=== PATIENT | female | born 1975 | race Caucasian/White ===

== ENCOUNTER 2021-03-10 10:09 | Outpatient (CLI) | payer OTHER, SELFPAY ==
--- NOTE | ~2021-03-10 | MM_ITS ---
EXAMINATION: MM screening sindhu BI w mikel HISTORY: Screening TECHNIQUE: Craniocaudal and mediolateral oblique 3-D tomosynthesis images were obtained and synthetic 2-D images were generated. CAD analysis was submitted and interpreted. COMPARISON: Comparison to multiple prior studies sequentially, with oldest reviewed study dated 08/16. BREAST PARENCHYMAL COMPOSITION: There are scattered areas of fibroglandular density. FINDINGS: There is no evidence of suspicious mass, calcification, or architectural distortion to sugg est malignancy in either breast. There has been no suspicious interval change. IMPRESSION: 1. No mammographic evidence of malignancy. 2. Recommend routine screening mammography in one year. BI-RADS Category 1: Negative Reviewed, dictated and finalized at location A.
== END 2021-03-10 10:10 | disposition home or self-care (01) ==
LOC: ANHIMG 10:13
PROVIDERS: PCP Family Medicine; Visit Provider Obstetrics & Gynecology
DX: Z12.31 Encounter for screening mammogram for malignant neoplasm of breast (principal)
CPT/HCPCS: 77063; 77067

== ENCOUNTER 2022-10-05 12:16 | Outpatient (CLI) | payer OTHER, SELFPAY ==
--- NOTE | ~2022-10-05 | MM_ITS ---
EXAMINATION: MM screening sindhu BI w mikel HISTORY: Screening mammogram TECHNIQUE: Craniocaudal and mediolateral oblique 3-D tomosynthesis images were obtained and synthetic 2-D images were generated. CAD analysis was submitted and interpreted. COMPARISON: 03/2021 bilateral screening mammogram the examination 10/24/2018 diagnostic right mammogram 10/15/2018 bilateral screening mammogram examination BREAST PARENCHYMAL COMPOSITION: There are scattered areas of fibroglandular density. FINDINGS: There is no evidence of suspicious mass, calcification, or architectural distortion to sugg est malignancy in either breast. There has been no suspicious interval change. IMPRESSION: 1. No mammographic evidence of malignancy. 2. Recommend routine screening mammography in one year. BI-RADS Category 1: Negative Reviewed, dictated and finalized at location A. 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
== END 2022-10-05 12:17 | disposition home or self-care (01) ==
LOC: ANHIMG 12:19
PROVIDERS: PCP Family Medicine; Visit Provider Obstetrics & Gynecology
DX: Z12.31 Encounter for screening mammogram for malignant neoplasm of breast (principal)
CPT/HCPCS: 77063; 77067

== ENCOUNTER 2023-12-27 11:31 | Outpatient (CLI) | payer OTHER, SELFPAY ==
--- NOTE | ~2023-12-27 | MM_ITS ---
EXAMINATION: MM screening sindhu BI w mikel HISTORY: Screening TECHNIQUE: Craniocaudal and mediolateral oblique 3-D tomosynthesis images were obtained and synthetic 2-D images were generated. CAD analysis was submitted and interpreted. COMPARISON: Comparison to multiple prior studies sequentially, with oldest reviewed study dated 09/2014. BREAST PARENCHYMAL COMPOSITION: There are scattered areas of fibroglandular density. FINDINGS: There is no evidence of suspicious mass, calcification, or architectural distortion to sugg est malignancy in either breast. There has been no suspicious interval change. IMPRESSION: 1. No mammographic evidence of malignancy. 2. Recommend routine screening mammography in one year. BI-RADS Category 1: Negative Reviewed, dictated and finalized at location A.
== END 2023-12-27 11:32 ==
PROVIDERS: PCP Obstetrics & Gynecology; Visit Provider Family Medicine
DX: Z12.31 Encounter for screening mammogram for malignant neoplasm of breast (principal)
CPT/HCPCS: 77063; 77067

== ENCOUNTER 2024-05-22 15:45 | Outpatient (CLI) | payer OTHER, SELFPAY ==
[2024-05-22 16:06] LABS: Basophils Percent Auto 0.3 % (0.2-1.2); Eosinophils Absolute Auto 0.1 K/mm3 (0-0.3); Eosinophils Percent Auto 0.7 % (0-4.4); Hemoglobin 13.5 g/dL (12.0-15.0); Immature Granulocyte Absolute 0.03 K/mm3 (0.00-0.031); Immature Granulocyte Percent A 0.4 % (0-0.5); Lymphocytes Absolute Auto 0.69 K/mm3 (0.9-3.2); Lymphocytes Percent Auto 9.6 % (18.3-44.2); Mean Corpuscular HGB Conc 33.8 g/dl (32-36); Mean Corpuscular Hemoglobin 30.4 pg (26-34); Mean Corpuscular Volume 90.1 fl (80-100); Mean Platelet Volume 10.9 fl (7.4-10.4); Monocytes Absolute Auto 0.5 K/mm3 (0.1-0.6); Neutrophils Absolute Auto 5.9 K/mm3 (1.3-6.7); Platelet Count Result 214 k/mm3 (150-375); Red Blood Count 4.44 M/mm3 (4.2-5.4); Red Cell Distribution Width 12.1 % (11.5-14.5); White Blood Count 7.2 K/mm3 (4.5-10.0)
[2024-05-22 17:14] LABS: Alanine Aminotransferase 21 U/L (6-35); Albumin Level 4.5 g/dL (3.5-5.1); Alkaline Phosphatase 67 U/L (38-126); Anion Gap 9 mmol/L (4-12); Aspartate Amino Transferase 31 U/L (14-36); Bilirubin,Total 0.2 mg/dL (0.2-1.3); Blood Urea Nitrogen 14 mg/dL (7-17); Calcium 9.3 mg/dL (8.4-10.2); Carbon Dioxide 29 mmol/L (22-30); Chloride 98 mmol/L (98-107); Estimated Glomerular Filt Rate > 60; Glucose 91 mg/dL (65-110); Potassium 3.9 mmol/L (3.4-5.0); Sodium 136 mmol/L (137-145)
[2024-05-22 21:22] LABS: Iron 68 ug/dL (37-170)
[2024-05-22 21:41] LABS: Percent Iron Saturation 19 % (20-50)
[2024-05-23 08:04] LABS: EBV Nuclear Ab Antibody >600.00 U/mL; EBV Virus Capsid Ag IgM Ab <36.00 U/mL
[2024-05-27 02:48] LABS: Methylmalonic Acid 97 nmol/L (55-335)
[2024-05-27 07:33] LABS: Anti Nuclear Antibody Pattern Nuclear, Speckled
== END 2024-05-22 15:46 | disposition home or self-care (01) ==
LOC: ANHLAB 15:46
PROVIDERS: PCP Obstetrics & Gynecology; Visit Provider Internal Medicine Hematology & Oncology
DX: D72.820 Lymphocytosis (symptomatic) (principal); R71.8 Other abnormality of red blood cells
CPT/HCPCS: 36415; 80053; 82607; 82728; 82746; 83540; 83550; 83921; 84238; 85025; 86038; 86039; 86664; 86665; 88184

== ENCOUNTER 2024-06-11 07:47 | Outpatient (CLI) | payer OTHER, SELFPAY ==
--- NOTE | ~2024-06-11 | US_ITS ---
Abdominal Sonogram: Real-time sonographic imaging of the abdomen was performed. Clinical History: Lymphocytopenia Findings: The liver appears normal with no evidence of mass lesion or bile duct dilatation. Main por maría vein demonstrates normal direction of flow. The spleen is normal in size without evidence of foca l lesion. The gallbladder is well distended, and appears normal with no evidence of gallstone or wal l thickening. The common bile duct measures 2 mm. The visualized pancreas, aorta, and IVC are unrema rkable. The right kidney measures 9.1 cm in length and the left kidney measures 9.5 cm. There is no hydronephrosis or renal calculus. Impression: Unremarkable abdominal ultrasound. Reviewed, dictated and finalized at location . 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
== END 2024-06-11 07:48 | disposition home or self-care (01) ==
PROVIDERS: Visit Provider Internal Medicine Hematology & Oncology
DX: D72.810 Lymphocytopenia (principal)
CPT/HCPCS: 76700

== ENCOUNTER 2024-11-01 08:56 | Outpatient (CLI) | payer OTHER, SELFPAY ==
--- NOTE | 2024-11-01 09:07 | ECG_ITS ---
Test Date: 2024-11-01 09:15:37 Measurements Intervals [place] Rate: 67 P: 52 W[place]: 166 QRS: 61 QRSD: 94 T: 36 QT: 400 QTc: 423 Interpretive Statements SINUS RHYTHM No previous ECG available for comparison Electronically Signed On 11-01-2024 11:00:08 CDT by Marly Bills M.D.
--- OUTSIDE RECORDS SUMMARY | 2024-11-01 09:23 | XMS_ITS | Clinical Summary ---
Author Organization [facility] Address [facility] [place] [address] Care Team Providers Care Ict Security Specialist Name Role Phone Maria De Jesus Voss MD Primary Care Provider [phone] Allergies Active Allergy Reactions Criticality Noted Date Comments Sulfa Antibiotics Rash Low 11/23/2023 Medications lisinopril (PRINIVIL) 20 MG tablet Take 1 tablet (20 mg total) by mouth daily. 4 Active naltrexone-buPROPio n ER (CONTRAVE) 12 hr tablet Take 2 tablets by mouth 2 (two) times daily. Active sertraline (ZOLOFT) 50 MG tablet Take 1 tablet (50 mg total) by mouth daily. 4 Active fluticasone propionate (FLONASE) 50 MCG/ACT nasal spray 2 sprays by Nasal route daily. 4 Active VEOZAH 45 MG Tab Take 1 tablet by mouth daily. 4 Active HYDROcodone-acetami nophen (NORCO) 5-325 MG tabletIndications:A cute Pain < 3 Day Supply Take 1 tablet by mouth every 6 (six) hours as needed. Indications: Acute Pain < 3 Day Supply 12 tablet 5 Active ondansetron (ZOFRAN-ODT) 4 MG disintegrating tablet Take 1 tablet (4 mg total) by mouth every 8 (eight) hours as needed. 20 tablet 5 Active Encounters Date Type Department Care Team Description 10/08/2024 11:31 AM COLLECTION ANALYST - 10/08/2024 4:33 PM COLLECTION ANALYST Emergency [facility] [place] [address] [place] [address] Aylin Art NP Abdominal Pain Discharge Disposition: Home or Self Care (Routine Discharge) 10/08/2024 Travel from Last 3 Months Social History Tobacco Use Types Packs/Day Years Used Date Smoking Tobacco: Never Smokeless Tobacco: Never Tobacco Cessation:Counseling Given: Not Answered Comments No Sex and Gender Information Value Date Recorded Sex Assigned at Female 10/08/2024 10:58 AM COLLECTION ANALYST Legal Sex Female 6:59 PM CDT Gender Identity Not on file Sexual Orientation Not on file Last Filed Vital Signs Vital Sign Reading Time Taken Comments Blood Pressure 141/86 10/08/2024 3:41 PM COLLECTION ANALYST Pulse 66 10/08/2024 3:41 PM COLLECTION ANALYST Temperature 36.6 C (97.9 F) 10/08/2024 10:55 AM COLLECTION ANALYST Respiratory Rate 18 10/08/2024 3:41 PM COLLECTION ANALYST Oxygen Saturation 100% 10/08/2024 3:41 PM COLLECTION ANALYST Inhaled Oxygen Concentration - - Weight 76.6 kg (168 lb 14 oz) 10/08/2024 10:55 A M COLLECTION ANALYST Height 165.1 cm (5' 5 ) 10/08/2024 10:55 AM COLLECTION ANALYST Body Mass Index 28.1 10/08/2024 10:55 AM COLLECTION ANALYST Plan of Treatment Health Maintenance Due Date Last Done Comments Colorectal Cancer Screening Colonoscopy (10 Years) 1973 Annual Physical 1976 Hepatitis C 10/19/1991 Hepatitis B Vaccines (1 of 3 - 19+ 3-dose series) 1992 Mammogram Screening 2013 Zoster Vaccines (1 of 2) 10/19/2023 COVID-19 Vaccine ( season) 2024 09/12/2021, 11/23/2020, 10/30/2020 DTaP, Tdap and Td Vaccines (2 - Td or Tdap) 08/03/2028 08/03/2018 Influenza Adult Completed 05/14/2024, 04/08, 05/04/2020, Additional history exists Meningococcal B Vaccine Aged Out No l onger eligible based on patient's age to complete this topic Meningococcal Vaccine Aged Out No popeye ora eligible based on patient's age to complete this topic Pneumococcal Vaccine: Pediatrics (0 to 5 Years) and At-Risk Patients (6 to 64 Years) Aged Out No longer eligible based on patient's age to complete this topic RSV Immunizations Under 20 Months Aged Out No longer eligible based on patient's age to complete this topic Procedures Procedure Name Priority Date/Time Associated Diagnosis Comments US PELVIC NON OB COMP TV STAT 10/08/2024 2:[address] ABD+PEL W CON STAT 10/08/2024 12:1 4 PM COLLECTION ANALYST LIPASE STAT 10/08/2024 11:41 AM COLLECTION ANALYST COMPREHENSIVE METABOLIC PANEL STAT 10/08/2024 11:41 AM COLLECTION ANALYST CBC W/DIFF AUTOMATED STAT 10/08/2024 11:41 AM COLLECTION ANALYST URINE BACTERIA CULTURE STAT 11:37 AM COLLECTION ANALYST HC URINALYSIS AUTO W/O MICRO STAT 10/08/2024 11:37 AM COLLECTION ANALYST from Last 3 Months Results * US PELVIC NON OB COMP TV (10/08/2024 2:30 PM COLLECTION ANALYST) Anatomical Region Laterality Modality Pelvis Ultrasound 10/08/2024 2:39 PM COLLECTION ANALYST Impressions 10/08/2024 2:55 PM COLLECTION ANALYST =====IMPRESSION:===== 1. No findings of ovarian torsion. 2. Status post hysterectomy. 3. Left ovarian 2.8 cm complex possibly hemorrhagic cyst. 4. Left ovarian small 1.7 cm hypoechoic possible involuting cyst or follicle. Ordered By: AYLIN ART Interpreted By: Florentino Adams MD, 10/08/2024 2:39 PM Narrative 10/08/2024 2:55 PM COLLECTION ANALYST [address] [address] EXAMINATION: Ultrasound transvaginal pelvis non-OB EXAM DATE/TIME: 10/08/2024 1:53 PM REASON FOR EXAM: 48-year-old female. Left lower quadrant abdominal pain. Ovarian cyst on CT imaging. Evaluation for torsion COMPARISON: CT abdomen pelvis 10/08/2024 TECHNIQUE: Transvaginal ultrasound evaluation of the pelvic contents was performed for analysis of grayscale and color Doppler imaging. FINDINGS: Uterus is surgically absent post hysterectomy. The right ovary measures 2.3 x 1.5 x 2.0 cm. The left ovary measures 4.9 x 2.1 x 4.5 cm. There is a left adnexal cyst measuring 2.8 x 2.1 x 2.8 cm with the layering internal echo suggestive of a hemorrhagic cyst. There are 2 additional smaller cysts or follicles. Additional small hypoechoic area measuring 1.7 cm abutting abutting or in the left ovary. Etiology uncertain. This could represent an involuting cyst. Flow is present in both ovaries. There is no torsion. No significant pelvic free fluid. Procedure Note Florentino Adams MD - 10/08/[address] [address] EXAMINATION: Ultrasound transvaginal pelvis non-OB EXAM DATE/TIME: 10/08/2024 1:53 PM REASON FOR EXAM: 48-year-old female. Left lower quadrant abdominal pain.Ovarian cyst on CT imaging. Evaluation for torsion COMPARISON: CT abdomen pelvis 10/08/2024 TECHNIQUE: Transvaginal ultrasound evaluation of the pelvic contents wasperformed for analysis of grayscale and color Doppler imaging. FINDINGS: Uterus is surgically absent post hysterectomy. The right ovary measures 2.3 x 1.5 x 2.0 cm. The left ovary measures 4.9 x 2.1 x 4.5 cm. There is a left adnexal cyst measuring 2.8 x 2.1 x 2.8 cm with thelayering internal echo suggestive of a hemorrhagic cyst. There are 2additional smaller cysts or follicles. Additional small hypoechoic areameasuring 1.7 cm abutting abutting or in the left ovary. Etiologyuncertain. This could represent an involuting cyst. Flow is present in both ovaries. There is no torsion. No significant pelvic free fluid. =====IMPRESSION:===== 1. No findings of ovarian torsion. 2. Status post hysterectomy. 3. Left ovarian 2.8 cm complex possibly hemorrhagic cyst. 4. Left ovarian small 1.7 cm hypoechoic possible involuting cyst orfollicle. Ordered By: AYLIN ART Interpreted By: Florentino Adams MD, 10/08/2024 2:39 PM us Aylin Art BRAZER CONTROLLED ATMOSPHERIC FURNACE ULTRASOUND Final Result * CT ABD+PEL W CON (10/08/2024 12:14 PM COLLECTION ANALYST) Anatomical Region Laterality Modality Abdomen Computed Tomogra phy 10/08/2024 12:5 5 PM COLLECTION ANALYST Impressions 10/08/2024 1:15 PM COLLECTION ANALYST =====IMPRESSION:===== 1. Left ovarian cyst measuring 3.6 cm is indeterminate. If this is acutely symptomatic, consider pelvic ultrasound. Otherwise, follow-up pelvic ultrasound would be recommended in 6 weeks to ensure resolution. 2. Small free pelvic fluid could be from ruptured ovarian cyst, endometriosis or occult inflammatory process. 3. Small hiatal hernia. 4. Prior sleeve gastrectomy and hysterectomy. Ordered By: AYLIN ART Interpreted By: Josh Oconnor MD, 10/08/2024 12:55 PM Narrative 10/08/2024 1:15 PM COLLECTION ANALYST [address] [address] EXAMINATION: CT Abdomen and Pelvis with contrast EXAM DATE/TIME: 10/08/2024 12:06 PM REASON FOR EXAM: left lower quadrant abdominal pain COMPARISON: None. TECHNIQUE: Computed tomography of the abdomen and pelvis was performed after administration of intravenous contrast, 100 mL Isovue 300 . Automated exposure control was utilized for dose reduction. FINDINGS: Abdomen: Small nonenhancing lesion in the left hepatic lobe medial segment is compatible with a cyst. Liver is otherwise unremarkable. The gallbladder, spleen, pancreas, kidneys, adrenal glands and IVC are unremarkable. Minimal aortic atherosclerosis. Large and small bowel are unremarkable. Normal appendix visualized. Small dense object in the distal ileum may represent a biopsy clip or other object within the bowel lumen. Prior sleeve gastrectomy. Small hiatal hernia. Small splenule noted in the left upper quadrant. No suspicious adenopathy. Pelvis: Prior hysterectomy. Bladder and rectum are unremarkable. Left ovarian cyst, largest measuring 3.6 cm in diameter. Right ovary is unremarkable. Small free pelvic fluid. No adenopathy. Other findings: Visualized lung bases are clear. Diffuse degenerative changes are noted. Cortical irregularity of the left iliac crest anterolaterally may represent old injury or postsurgical changes. No acute fracture or destructive bone lesion. Procedure Note Rice, Josh Davila MD - 10/08/[address] [address] EXAMINATION: CT Abdomen and Pelvis with contrast EXAM DATE/TIME: 10/08/2024 12:06 PM REASON FOR EXAM: left lower quadrant abdominal pain COMPARISON: None. TECHNIQUE: Computed tomography of the abdomen and pelvis was performedafter administration of intravenous contrast, 100 mL Isovue 300 .Automated exposure control was utilized for dose reduction. FINDINGS: Abdomen: Small nonenhancing lesion in the left hepatic lobe medial segmentis compatible with a cyst. Liver is otherwise unremarkable. Thegallbladder, spleen, pancreas, kidneys, adrenal glands and IVC areunremarkable. Minimal aortic atherosclerosis. Large and small bowel areunremarkable. Normal appendix visualized. Small dense object in the distalileum may represent a biopsy clip or other object within the bowel lumen.Prior sleeve gastrectomy. Small hiatal hernia. Small splenule noted in theleft upper quadrant. No suspicious adenopathy. Pelvis: Prior hysterectomy. Bladder and rectum are unremarkable. Leftovarian cyst, largest measuring 3.6 cm in diameter. Right ovary isunremarkable. Small free pelvic fluid. No adenopathy. Other findings: Visualized lung bases are clear. Diffuse degenerativechanges are noted. Cortical irregularity of the left iliac crestanterolaterally may represent old injury or postsurgical changes. No acutefracture or destructive bone lesion. =====IMPRESSION:===== 1. Left ovarian cyst measuring 3.6 cm is indeterminate. If this is acutelysymptomatic, consider pelvic ultrasound. Otherwise, follow-up pelvicultrasound would be recommended in 6 weeks to ensure resolution. 2. Small free pelvic fluid could be from ruptured ovarian cyst,endometriosis or occult inflammatory process. 3. Small hiatal hernia. 4. Prior sleeve gastrectomy and hysterectomy. Ordered By: AYLIN ART Interpreted By: Josh Oconnor MD, 10/08/2024 12:55 PM Aylin Art BRAZER CONTROLLED ATMOSPHERIC FURNACE CT Final Result * (ABNORMAL) COMPREHENSIVE METABOLIC PANEL (10/08/2024 11:41 AM COLLECTION ANALYST) GLUCOSE 78 70 - 99 MG/DL 10/08/2024 12:13 PM [facility] BUN 10 7 - 18 MG/DL 10/08/2024 12:13 PM [facility] CREATININE S/P/B 0.81 0.55 - 1.02 MG/DL 10/08/2024 12:13 PM [facility] SODIUM S/P/B 137 136 - 145 MMOL/L 10/08/2024 12:13 PM [facility] POTASSIUM S/P/B 3.5 3.5 - 5.1 MMOL/L 10/08/2024 12:13 PM [facility] CHLORIDE S/P/B 103 97 - 115 MMOL/L 10/08/2024 12:13 PM [facility] CO2 28.0 21 - 32 MMOL/L 10/08/2024 12:13 PM [facility] CALCIUM S/P/B 9.1 8.5 - 10.1 MG/DL 10/08/2024 12:13 PM [facility] BILIRUBIN TOTAL S/P/B 0.5 0.2 - 1.2 MG/DL 10/08/2024 12:13 PM [facility] Comment: THIS ASSAY IS NOT RECOMMENDED FOR PATIENTS UNDERGOING TREATMENT WITH ELTROMBOPAG DUE TO THE POTENTIAL FOR FALSELY ELEVATED RESULTS. TOTAL PROTEIN S/P/B 7.5 6.4 - 8.2 G/DL 10/08/2024 12:13 PM [facility] ALBUMIN S/P/B 4.0 3.4 - 5.0 G/DL 10/08/2024 12:13 PM [facility] AST 18 15 - 37 U/L 10/08/2024 12:13 PM [facility] ALT 24 14 - 55 U/L 10/08/2024 12:13 PM [facility] ALKALINE PHOSPHATASE S/P/B 57 50 - 136 U/L 10/08/2024 12:13 PM [facility] ANION GAP 6.0 2 - 10 MMOL/L 10/08/2024 12:13 PM [facility] BUN CREATININE RATIO 12.4 6 - 26 10/08/2024 12:13 PM [facility] A/G RATIO 1.1 1.0 - 2.0 RATIO 10/08/2024 12:13 PM [facility] GFR ESTIMATE 88(L) >90 ML/MIN/1.7 3 M2 10/08/2024 12:13 PM [facility] Comment: NOTE: eGFR is not calculated for patients <18 years of age or gender unknown. This is an estimated GFR calculation using the new CKD EPI creatinine equation without race and so does not require a correction factor for race. This estimated GFR should not be used for calculating drug doses. 10/08/2024 11:4 1 AM COLLECTION ANALYST Aylin Art NP LABORATORY Final Result [facility] [address] [place] [address], [place] [phone] * (ABNORMAL) CBC W/DIFF AUTOMATED (10/08/2024 11:41 AM COLLECTION ANALYST) Pathologist [facility] WBC 8.64 4.5 - 11.0 x10'3/uL 10/08/2024 11:51 AM COLLECTION ANALYST [facility] RBC 4.93 4.20 - 5.40 x10'6/uL 10/08/2024 11:51 AM [facility] HGB 14.8 12.0 - 16.0 G/DL 10/08/2024 11:51 AM [facility] HCT 43.1 38.0 - 48.0 % 10/08/2024 11:51 AM [facility] MCV 87.4 81.0 - 99.0 FL 10/08/2024 11:51 AM [facility] MCH 30.0 27.0 - 31.0 PG 10/08/2024 11:51 AM [facility] MCHC 34.3 32.0 - 36.0 G/DL 10/08/2024 11:51 AM COLLECTION ANALYST [facility] RDW 12.1 11.5 - 14.5 % 10/08/2024 11:51 AM [facility] PLT 203 130 - 400 x10'3/uL 10/08/2024 11:51 AM [facility] MPV 11.9 9.3 - 12.2 FL 10/08/2024 11:51 AM [facility] DIFFERENTIAL TYPE AUTOMATED DIFFERENTIAL 10/08/2024 11:51 AM COLLECTION ANALYST [facility] NEUTROPHILS % 82.9 % 10/08/2024 11:51 AM COLLECTION ANALYST [facility] LYMPHOCYTES % 9.8 % 10/08/2024 11:51 AM [facility] MONOCYTES % 6.6 % 10/08/2024 11:51 AM [facility] EOSINOPHILS 0.2 % 10/08/2024 11:51 AM COLLECTION ANALYST [facility] BASOPHILS 0.2 % 10/08/2024 11:51 AM COLLECTION ANALYST [facility] IMMATURE GRANS % 0.3 % 10/09/19 11:51 AM [facility] ABS. NEUTROPHILS 7.15 1.80 - 7.70 x10'3/uL 10/08/2024 11:51 AM [facility] ABS. LYMPHOCYTES 0.85(L) 1.00 - 4.80 x10'3/uL 10/08/2024 11:51 AM COLLECTION ANALYST [facility] ABS. MONOCYTES 0.57 0.24 - 0.86 x10'3/uL 10/08/2024 11:51 AM [facility] ABS. EOSINOPHILS 0.02(L) 0.04 - 0.36 x10'3/uL 10/08/2024 11:51 AM COLLECTION ANALYST [facility] ABS. BASOPHILS 0.02 0.01 - 0.08 x10'3/uL 10/08/2024 11:51 AM COLLECTION ANALYST [facility] ABS. IMMATURE GRANULOCYTES 0.03 0.00 - 0.49 x10'3/uL 10/08/2024 11:51 AM [facility] 10/08/2024 11:4 1 AM COLLECTION ANALYST us Aylin Art NP LABORATORY Final Result [facility] [address] [place] [address], [place] [phone] * LIPASE (10/08/2024 11:41 AM COLLECTION ANALYST) LIPASE 42 13 - 75 UNITS/L 10/08/2024 12:13 PM COLLECTION ANALYST [facility] 10/08/2024 11:4 1 AM COLLECTION ANALYST Aylin Art NP LABORATORY Final Result [facility] [address] [place] [address], [place] [phone] * URINALYSIS (10/08/2024 11:37 AM COLLECTION ANALYST) SPECIMEN TYPE URINE CLEAN CATCH 10/08/2024 11:33 AM COLLECTION ANALYST [facility] COLOR (U) LIGHT YELLOW 10/08/2024 11:57 AM [facility] TRANSPARENCY CLEAR 10/08/2024 11:57 AM [facility] SPECIFIC GRAVITY (U) 1.003 1.001 - 1.030 10/08/2024 11:57 AM [facility] U PH 6.5 5.0 - 9.0 10/08/2024 11:57 AM [facility] LEUKOCYTES (U) NEGATIVE NEGATIVE 10/08/2024 11:57 AM [facility] NITRITES NEGATIVE NEGATIVE 10/08/2024 11:57 AM [facility] PROTEIN RANDOM (U) NEGATIVE <30 MG/DL 10/08/2024 11:57 AM [facility] GLUCOSE (U) NORMAL NORMAL MG/DL 10/08/2024 11:57 AM COLLECTION ANALYST [facility] KETONES MG/DL (U) NEGATIVE NEGATIVE MG/DL 10/08/2024 11:57 AM COLLECTION ANALYST [facility] UROBILINOGEN NORMAL NORMAL MG/DL 10/08/2024 11:57 AM [facility] BILIRUBIN (U) NEGATIVE NEGATIVE MG/DL 10/08/2024 11:57 AM COLLECTION ANALYST [facility] BLOOD (U) NEGATIVE NEGATIVE 10/08/2024 11:57 AM COLLECTION ANALYST [facility] URINE SPECIMEN OBTAINED BY CLEAN CATCH PROCEDURE / Unknown 10/08/2024 11:37 AM COLLECTION ANALYST Aylin Art NP URINE ORDERABLES Final Result Performing Organization Address [facility] Co de Phone Number [facility] [address] [place] [address], [place] [phone] * CULTURE URINE (10/08/2024 11:37 AM COLLECTION ANALYST) SPEC DESCRIPTION URINE CLEAN CATCH 10/08/2024 11:33 AM COLLECTION ANALYST [facility] SPECIAL REQUESTS NO SPECIAL REQUEST 10/08/2024 11:33 AM [facility] CULTURE RESULT NO GROWTH 2 DAYS 10/10/2024 7:10 AM COLLECTION ANALYST [facility] URINE SPECIMEN OBTAINED BY CLEAN CATCH PROCEDURE / Unknown 10/08/2024 11:37 AM COLLECTION ANALYST 10/08/2024 11:46 AM COLLECTION ANALYST Aylin Art NP MICROBIOLOGY - GENERAL ORDERAB LES Final Result Performing Organization Address City/[facility]/ZIP Co de Phone Number [facility] [address] [place] [address], [place] [phone] from Last 3 Months Insurance [facility] Care Teams Ict Security Specialist Relationship Specialty Start Date End Date Maria De Jesus Voss MD [address] [place] [address] [place] [address] PCP - General INTERNAL MEDICINE 10/08/24
--- OUTSIDE RECORDS SUMMARY | 2024-11-01 09:23 | XMS_ITS | Clinical Summary ---
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 Gender Identity Not on file Sexual Orientation Not on file Plan of Treatment Health Maintenance Due Date Last Done Comments Hepatitis C Virus (HCV) Screening 1973 TdaP Immunization 1973 Hepatitis B Immunization (1 of 3 - 19+ 3-dose series) 1992 Colonoscopy 2018 Colorectal Cancer Screening 2018 Cologuard 10/19/2023 Immunochemical Fecal Occult Blood 10/19/2023 Pneumococcal Immunization (5 0+ years) (1 of 1 - PCV) 10/19/2023 Zoster Immunization (1 of 2) 10/19/2023 Influenza Immunization (#1) 2024 SARS-COV-2 Immunization ( - season) 2024 Respiratory Syncytial Virus (RSV) Immunization (Adult) (1 - 1-dose 75+ series) 2048 Meningococcal Immunization (ACWY) Aged Out No longer eligible based on patient's age to complete this topic Rotavirus Immunization Aged Out No lo nger eligible based on patient's age to complete this topic
--- OUTSIDE RECORDS SUMMARY | 2024-11-01 09:23 | XMS_ITS | Referral Summary ---
Author Organization [facility] [address] Address [address] [place] [id number] Care Team Providers Care Nutritional Services Cook Name Role Phone Angelique Stuart MD Primary Care Provider Allergies Active Allergy Reactions Criticality Noted Date Comments Sulfa (Sulfonamide Antibiotics) Rash Medium 06/07 Sulfasalazine Rash Medium 06/24/2013 Medications fluticasone propionate (FLONASE) 50 mcg/actuation nasal spray Administer 2 sprays into affected nostril(s) daily 2 Active lisinopriL (PRINIVIL,ZESTR [place]) 20 mg tablet 1 tablet (20 mg total) 2 Active naltrexone-bupr opion (Contrave) 8-90 mg tablet extended release 2 tablets Active sertraline (ZOLOFT) 50 mg tablet 1 tablet (50 mg total) 2 Active Active Problems No known active problems Social History Tobacco Use Types Packs/Day Years Used Date Smoking Tobacco: Never Tobacco Cessation:Counseling Given: Not Answered Personal Safety Answer Date Recorded Getting School Help Needed Not on file 08/12 Comments Unknown Sex and Gender Information Value Date Recorded Sex Assigned at Not on file Legal Sex Female 6:44 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 Gender Identity Not on file Sexual Orientation Not on file Last Filed Vital Signs Vital Sign Reading Time Taken Comments Blood Pressure 133/85 06/23/2022 10:20 AM COBOL PROGRAMMER Pulse 91 06/23/2022 10:20 AM COBOL PROGRAMMER Temperature - - Respiratory Rate - - Oxygen Saturation - - Inhaled Oxygen Concentration - - Weight 79.8 kg (176 lb) 06/23/2022 10:20 AM COBOL PROGRAMMER Height 165.1 cm (5' 5 ) 06/23/2022 10:20 AM COBOL PROGRAMMER Body Mass Index 29.29 06/23/2022 10:20 AM COBOL PROGRAMMER Plan of Treatment Not on file Insurance [employer] Care Teams Nutritional Services Cook Relationship Specialty Start Date End Date Angelique Stuart MD PCP - General Family Medicine 06/14/22
--- OUTSIDE RECORDS SUMMARY | 2024-11-01 09:23 | XMS_ITS | Clinical Summary ---
Author Organization [facility] [address] [address] Care Team Providers Care Powerhouse Oiler Name Role Phone Angelique Stuart MD Primary [...] Active Active Problems No known active problems Surgical History Surgery Date Site/Laterality Comments BARIATRIC SURGERY Gastric Sleeve HYSTERECTOMY MANDIBLE FRACTURE SURGERY SHOULDER SURGERY SLAP Repair SHOULDER ARTHROSCOPY SECTION ABLATION Medical History Medical History Date Comments Hypertension Family History Medical History Relation Name Comments Breast cancer Other Heart disease Other Hypertension Other Ovarian cancer Other Relation Name Status Comments Other Social History Tobacco Use Types Packs/Day Years Used Date Smoking Tobacco: Never Tobacco Cessation:Counseling Given: Not Answered Personal Safety Answer Date Recorded Getting School Help Needed Not on file 08/12 Comments Unknown Sex and Gender Information Value Date Recorded Sex Assigned at Not on file 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 Gender Identity Not on file Sexual Orientation Not on file Obstetrics History Last Filed Vital Signs Vital Sign Reading Time Taken Comments Blood Pressure 133/85 06/23/2022 10:20 AM CITY ATTORNEY Pulse 91 06/23/2022 10:20 AM CITY ATTORNEY Temperature - - Respiratory Rate - - Oxygen Saturation - - Inhaled Oxygen Concentration - - Weight 79.8 kg (176 lb) 06/23/2022 10:20 AM CITY ATTORNEY Height 165.1 cm (5' 5 ) 06/23/2022 10:20 AM CITY ATTORNEY Body Mass Index 29.29 06/23/2022 10:20 AM CITY ATTORNEY Plan of Treatment Health Maintenance Due Date Last Done Comments Breast Cancer Screening-Mammogram 1973 Colon Cancer Screening-Colonoscopy 1973 Depression Screening 1973 Hepatitis C Screening 1973 Hepatitis B Screening 10/19/1991 Regular Well Visit/Exam 18-64 10/19/1991 Zoster Vaccine (1 of 2) 10/19/2023 Covid-19 Vaccine ( season) 2024 09/12/2021, 11/23/2020, 10/30/2020 Influenza Vaccine (#1) 2024 , 05/04/2020, 05/08/2019, Additional history exists DTaP/Tdap/Td Vaccine (2 - Td or Tdap) 08/03/2028 08/03/2018 Pneumococcal vaccine <65 Aged Out No longer eligible based on patient's age to complete this topic Insurance MALIHA ALLEGIANCE Care Teams Powerhouse Oiler Relationship Specialty Start Date End Date Angelique Stuart MD PCP - General Family Medicine 06/14/22
--- OUTSIDE RECORDS SUMMARY | 2024-11-01 09:23 | XMS_ITS | Clinical Summary ---
Author Organization [facility] Address [address] [place] [address] Care Team Providers Care X Ray Equipment Tester Name Role Phone Unavailable Primary Care Provider Unavailabl e Source Comments [facility],non-owned Affiliates and Associated Physician Practices is amultiple site organization consisting of ambulatory clinics and hospital sitesin [place], [place], [place] and [place]. This disclosure is being madepursuant to the Care Everywhere program and may not contain all information available regarding this patient. Last updated 18.[facility] Allergies Active Allergy Reactions Criticality Noted Date Comments Sulfa Drugs Rash Low 06/24/2013 Medications * Be aware that medications may not be up to date on this document. Alwaysverify current medications with the patient. Medication Sig Dispensed Refills Start Date End Date Status lisinopril (PRINIVIL; ZESTRIL) 10 MG tablet Take 20 mg by mouth once daily after breakfast Active sertraline (ZOLOFT) 50 MG tablet Take 50 mg by mouth once daily Active Active Problems Problem Noted Date Diagnosed Date Heartburn 06/24/2013 Depression 06/24/2013 Social History Tobacco Use Types Packs/Day Years Used Date Smoking Tobacco: Never Smokeless Tobacco: Never Alcohol Use Standard Drinks/Week Comments No 0 (1 standard drink = 0.6 oz pur e alcohol) Sex and Gender Information Value Date Recorded Sex Assigned at Not on file Gender Identity Not on file Sexual Orientation Not on file Last Filed Vital Signs Vital Sign Reading Time Taken Comments Blood Pressure 139/96 03/07/2017 12:30 PM CDT Pulse 65 03/07/2017 12:30 PM CDT Temperature 36.3 C (97.3 F) 03/10/2014 2:05 PM CDT Respiratory Rate 16 02/27/2014 11:35 AM CDT Oxygen Saturation 100% 10/17/2014 12:08 PM CDT Inhaled Oxygen Concentration - - Weight 79.6 kg (175 lb 8 oz) 03/07/2017 12:30 PM CDT Height 165.1 cm (5' 5 ) 03/07/2017 12:30 PM CDT Body Mass Index 29.2 03/07/2017 12:30 PM CDT Plan of Treatment Health Maintenance Due Date Last Done Comments COLOGUARD (AGES 45-75) - COLON CA SCREENING 1973 COLON MONITORING 1973 COLONOSCOPY - COLON CA SCREENING 1973 CT COLONOGRAPHY - COLON CA SCREENING 1973 Colorectal Cancer Screening 1973 FIT - COLON CA SCREENING 1973 FLEX SIG - COLON CA SCREENING 1973 LIPID TESTING 1973 MAMMOGRAM 1973 PAP SMEAR 1973 HIV SCREENING 1988 HEPATITIS C SCREENING 10/14/1991 DTAP/TDAP/TD VACCINES (1 - Tdap) 1992 HEPATITIS B VACCINE (1 of 3 - 19+ 3-dose series) 1992 SCREENING FOR DIABETES 10/17/2017 5, 02/21/2014, 02/21/2014, Additional history exists PNEUMOCOCCAL VACCINE 50+ (1 of 1 - PCV) 10/19/2023 ZOSTER VACCINE (1 of 2) 10/19/2023 COVID-19 VACCINE (1 - 2023- season) 2024 INFLUENZA VACCINE (#1) 2024 DEPRESSION SCREENING 08/07/2024 HIB VACCINE Aged Out No longer eligi ble based on patient's age to complete this topic HPV VACCINE Aged Out No longer eligi ble based on patient's age to complete this topic MENINGOCOCCAL (Group B) VACCINE SHARED DECISION-MAKING Aged Out No longer eligible based on patient's age to complete this topic MENINGOCOCCAL GROUPS A/C/Y/W VACCINE Aged Out No longer eligible based on patient's age to complete this topic Procedures Procedure Name Priority Date/Time Associated Diagnosis Comments COMPREHENSIVE METABOLIC PANEL Routine 10/17/2014 12:46 PM CDT Bariatric surgery status Obesity Unspecified vitamin D deficiency Unspecified nutritional deficiency Unspecified vitamin deficiency Mineral deficiency, not elsewhere classified from Last 3 Months or Most Recently Relevant to Health Maintenance Results * COMPREHENSIVE METABOLIC PANEL (10/17/2014 12:46 PM CDT) Glucose 85 65 - 99 mg/dL [facility] ACCOUNT BILL BUN 10 6 - 24 mg/dL [facility] ACCOUNT BILL Creatinine 0.71 0.57 - 1.00 mg/dL [facility] ACCOUNT BILL eGFR by MDRD 107 >59 mL/min/1.7 3 [facility] ACCOUNT BILL eGFR by MDRD 123 >59 mL/min/1.7 3 [facility] ACCOUNT BILL BUN/Creatinine Ratio 14 9 - 23 [facility] ACCOUNT BILL Sodium 140 134 - 144 mmol/L [facility] ACCOUNT BILL Potassium 4.3 3.5 - 5.2 mmol/L [facility] ACCOUNT BILL Chloride 101 97 - 108 mmol/L [facility] ACCOUNT BILL CO2 24 18 - 29 mmol/L [facility] ACCOUNT BILL Calcium 9.1 8.7 - 10.2 mg/dL [facility] ACCOUNT BILL Protein Total 6.7 6.0 - 8.5 g/dL [facility] ACCOUNT BILL Albumin 4.2 3.5 - 5.5 g/dL [facility] ACCOUNT BILL Globulin Total 2.5 1.5 - 4.5 g/dL [facility] ACCOUNT BILL Albumin/Globulin Ratio 1.7 1.1 - 2.5 [facility] ACCOUNT BILL Bilirubin Total 0.3 0.0 - 1.2 mg/dL [facility] ACCOUNT BILL Alkaline Phosphatase 53 39 - 117 IU/L [facility] ACCOUNT BILL AST 15 0 - 40 IU/L [facility] ACCOUNT BILL ALT 17 0 - 32 IU/L [facility] ACCOUNT BILL Blood specimen (specimen) BLOOD SPECIMEN / Unknown 10/17/2014 12:46 PM CDT 10/17/2014 2:56 PM CDT Narrative Resulting Agency Comment [facility] [address] [id number] Amanda Boles MACHINE ROOM ENGINEER-INSURANCE OPERATIONS REP LAB - CHEMIS TRY ORDERABLES [facility] ACCOUNT BILL from Last 3 Months or Most Recently Relevant to Health Maintenance Advance Directives * Full Code (Latest Code Status on File) Date Activated Date Inactivated Comments 02/19/2014 11:47 AM 02/21/2014 2:39 PM
--- OUTSIDE RECORDS SUMMARY | 2024-11-01 09:24 | XMS_ITS | Encounter Summary ---
Author Organization [employer] [facility] Address [address] [place] [address] Care Team Providers Care Lift Slab Operator Name Role Phone Maria De Jesus Voss MD Primary Care Provider [phone] Reason for Visit * Reason Onset Date Comments Upcoming Surgery 10/31/2024 Encounter Details Date Type Department Care Team (Late st Contact Info) Description 10/31/2024 Telephone [facility] [place] [address] [address] Maria De Jesus Voss MD [address] [place] [address] Upcoming Surgery Social History Tobacco Use Types Packs/Day Years Used Date Smoking Tobacco: Never Smokeless Tobacco: Never Alcohol Use Standard Drinks/Week Comments Yes 3 (1 standard drink = 0.6 oz pur e alcohol) Comments No Sex and Gender Information Value Date Recorded Sex Assigned at Female 04/21/2024 8:32 PM CDT Legal Sex Female 11:23 AM CDT Gender Identity Female 04/21/2024 8:32 PM CDT Sexual Orientation Straight 04/21/2024 8: 32 PM CDT documented as of this encounter Miscellaneous Notes * Telephone Encounter - Naty Reece - 10/31/2024 11:36 AM CDT Patient came in stating she is having L ovary removed at [place] by Dr Calix- 3 cysts. November 06, 2024. Pt was seen in ED within last month in pain. (Records are in chart) documented in this encounter Plan of Treatment Upcoming Encounters Date Type Department Care Team (Late st Contact Info) Description 11/25/2024 1:00 PM CDT Procedure visit [facility] [place] [address] [employer] [place] [phone] 12/20/2024 10:00 AM CDT Office Visit [facility] - [place] [address] [place] [phone] Johnathan Romero MD [address] [place] [phone] documented as of this encounter Visit Diagnoses Not on filedocumented in this encounter Care Teams Lift Slab Operator Relationship Specialty Start Date End Date Maria De Jesus Voss MD [address] [place] [id number] PCP - General Internal Medicine 02/06/24 documented as of this encounter
--- OUTSIDE RECORDS SUMMARY | 2024-11-01 09:24 | XMS_ITS | Encounter Summary ---
Author Organization [facility] Address [address] [place] [address] Care Team Providers Care High School Mathematics Teacher Name Role Phone Maria De Jesus Voss MD Primary Care Provider [phone] Encounter Details Date Type Department Care Team (Late Contact Info) Description 09/23/2024 Results Follow-Up [facility] [address] [place] [address] Maria De Jesus Voss MD [address] [place] [address] VITAMIN D 25 HYDROXY, TSH, LIPID PANEL, Additional followed-up results: 2 Social History Tobacco Use Types Packs/Day Years [...] PM CDT documented as of this encounter Plan of Treatment Upcoming Encounters Date Type Department Care Team (Late st Contact Info) Description 11/25/2024 1:00 PM CDT Procedure visit [facility] [employer] [facility] [address] [place] [address] 12/20/2024 10:00 AM CDT Office Visit [facility] - [place] [facility] [place] [address] [address] Johnathan Romero MD [address] [facility] [address] [place] [address] Scheduled Orders Name Type Priority Associated Diagnoses Orde r Schedule VITAMIN D 25 HYDROXY Lab Routine Low vitamin D level Expected: 11/21/2024, Expires: 09/23/2025 documented as of this encounter Visit Diagnoses Diagnosis Low vitamin D level- Primary documented in this encounter Care Teams High School Mathematics Teacher Relationship Specialty Start Date End Date Maria De Jesus Voss MD [address] [place] [address] [place] [address] PCP - General Internal Medicine 02/06/24 documented as of this encounter
--- OUTSIDE RECORDS SUMMARY | 2024-11-01 09:24 | XMS_ITS | Clinical Summary ---
Author Organization [facility] [employer] [place] Address [address] [place] [place] [address] Care Team Providers Care Assembler Dc Field Yoke Name Role Phone Maria De Jesus Voss MD Primary Care Provider [phone] Allergies Active Allergy Reactions Criticality Noted Date Comments Sulfa (Sulfonamide Antibiotics) Rash Low 11/05 Sulfasalazine Rash Low 06/24/2013 Medications fluticasone propionate (FLONASE) 50 mcg/spray Corona, Suspension nasal inhaler Administer 2 Sprays in each nostril daily. 16 Gram 2 4 Active multivitamin with minerals (HAIR,SKIN AND NAILS ORAL) Take by mouth. Act agapito ergocalciferol (Vitamin D2) 50,000 unit capsuleIndicatio ns:Low vitamin D level Take 1 Capsule (50,000 Units) by mouth every 7 days for 8 doses. 8 Capsule 5 025 Active tirzepatide, weight loss, (Zepbound) 5 mg/0.5 mL Pen InjectorIndicati ons:Obesity, Class I, BMI 30-34.9 Inject 5 mg by subcutaneous injection every 7 days. 6 mL 1 5 Active lisinopriL (PRINIVIL) 20 mg tabletIndication s:Benign hypertension Take 1 Tablet (20 mg) by mouth daily. 90 Tablet 5 Active sertraline (ZOLOFT) 50 mg tabletIndication s:Situational depression Take 1 Tablet (50 mg) by mouth daily. 90 Tablet 5 Active Active Problems Problem Noted Date Diagnosed Date Lymphopenia 04/04/2024 Blood donor, plasma 04/04/2024 Benign hypertension 08/08/2023 Macrocytic anemia 03/28/2019 Personal history of ovarian cyst 03/26/2019 Situational depression 02/09/2018 Encounters Date Type Department Care Team Description 10/31/2024 Telephone [facility] at [facility] [address] [place] [phone] Maria De Jesus Voss MD Upcoming Surgery 10/23/2024 External Device Data STL ABSTRACTION Provider, Abstract 10/12/2024 External Device Data STL ABSTRACTION Provider, Abstract 10/11/2024 External Device Data STL ABSTRACTION Provider, Abstract 10/08/2024 External Device Data STL ABSTRACTION Provider, Abstract 09/27/2024 1:00 PM CIGARETTE CATCHER Office Visit [facility] [address] [place] [phone] Maria De Jesus Voss MD Obesity, Class I, BMI 30-34.9 (Primary Dx); Low vitamin D level; Benign hypertension; Situational depression 09/24/2024 External Device Data STL ABSTRACTION Provider, Abstract 09/23/2024 Results Follow-Up [place] [address] [place] [phone] Maria De Jesus Voss MD VITAMIN D 25 HYDROXY, TSH, LIPID PANEL, Additional followed-up results: 2 09/20/2024 8:00 AM CIGARETTE CATCHER Office [place] [facility] [place][note 2] [address] [place] [phone] Low vitamin D level; Screening for condition; Benign hypertension 09/20/2024 Refill [facility] [address] [place] [phone] Maria De Jesus Voss MD Obesity, Class I, BMI 30-34.9 08/28/2024 1:00 PM CIGARETTE CATCHER Office Visit [facility] [place]note 2] [address] [place] [phone] Maria De Jesus Voss MD Benign hypertension (Primary Dx); Situational depression; Obesity, Class I, BMI 30-34.9; Low vitamin D level; Screening for condition 08/28/2024 External Device Data STL ABSTRACTION Provider, Abstract 08/27/2024 External Device Data STL ABSTRACTION Provider, Abstract 08/20/2024 External Device Data STL ABSTRACTION Provider, Abstract from Last 3 Months Immunizations Immunization Administration Dates Next Due (ADACEL/BOOSTRIX)(10 YR UP) TDAP VACCINE, 0.5ML, IM 08/03/2018 INFLUENZA VACCINE QUADRIVALENT 3 YR UP PF IM 04/2017 INFLUENZA VACCINE QUADRIVALENT 6 MOS UP IM 05/08,05/03/2018 INFLUENZA VACCINE QUADRIVALENT 6 MOS UP PF IM ,05/04/2020 INFLUENZA VACCINE TRIVALENT SPLIT VIRUS, (6 MOS UP), 0.5ML (PF), IM 05/14/2024 Family History Medical History Relation Name Comments No Known Problems Brother No Known Problems Daughter Heart Disease Father Gabriele Archibald CAD . no elicia nts. med managed. High Cholesterol Father Gabriele Archibald Hypertension Father Gabriele Archibald Alcohol abuse Maternal Grandfather Ovarian Cancer Maternal Grandmother Antonieta Hung had B RACA gene Sudden Mother MVA Unknown Paternal Grandfather Heart Attack Paternal Grandmother No Known Problems Son Breast Cancer Neg Hx Colon Cancer Neg Hx Lung Cancer Neg Hx Relation Name Status Comments Brother Alive Daughter Alive Father Gabriele Archibald Alive Maternal Grandfather Maternal Grandmother Antonieta Hung Mother (Age 2010) Paternal Grandfather Paternal Grandmother Son Alive Social History Tobacco Use Types Packs/Day Years Used Date Smoking Tobacco: Never Smokeless Tobacco: Never Tobacco Cessation:Counseling Given: Not Answered Alcohol Use Standard Drinks/Week Comments Yes 3 (1 standard drink = 0.6 oz pur e alcohol) Comments No Sex and Gender Information Value Date Recorded Sex Assigned at Female 04/21/2024 8:32 PM CDT Legal Sex Female 11:23 AM CDT Gender Identity Female 04/21/2024 8:32 PM CDT Sexual Orientation Straight 04/21/2024 8: 32 PM CDT Last Filed Vital Signs Vital Sign Reading Time Taken Comments Blood Pressure 124/84 09/27/2024 1:05 PM CIGARETTE CATCHER Pulse 64 09/27/2024 1:05 PM CIGARETTE CATCHER Temperature 37.1 C (98.7 F) 08/28/2024 12:58 PM CIGARETTE CATCHER Respiratory Rate 18 09/27/2024 1:05 PM CIGARETTE CATCHER Oxygen Saturation 96% 09/27/2024 1:05 PM CIGARETTE CATCHER Inhaled Oxygen Concentration - - Weight 78.4 kg (172 lb 12.8 oz) 09/27/2024 1:05 PM CIGARETTE CATCHER Height 165.1 cm (5' 5 ) 09/27/2024 1:05 PM CIGARETTE CATCHER Body Mass Index 28.76 09/27/2024 1:05 PM CIGARETTE CATCHER Plan of Treatment Upcoming Encounters Date Type Department Care Team (Late st Contact Info) Description 11/25/2024 1:00 PM CDT Procedure visit [facility] at [employer] [place] [address] [place] [phone] 12/20/2024 10:00 AM CDT Office Visit [facility] Oncology and Hematology - [place] [address] [facility] [address] [place] [address] Johnathan Romero MD [address] [facility] [address] [place] [address] Health Maintenance Due Date Last Done Comments HEPATITIS B VACCINES (1 of 3 - 19+ 3-dose series) 1992 COLORECTAL SCREENING 2018 Flex Sig/CT Colonography Q 5 years 2018 FIT/FOBT Q 1 year 04/09/2020 04/09/2019 ZOSTER VACCINE (1 of 2) 10/19/2023 BREAST CANCER SCREENING 12/26/2024 12/27/19 24, 03/10/2021, 03/10/2021 (Previously completed), Additional history exists Pre-Diabetes and Diabetes Screening 02/17/2025 02/17/2022 Colorectal Cancer Screening 03/15/2026 FIT-DNA Q 3 years 03/15/2026 03/15/2023 DTAP/TDAP/TD VACCINES (2 - T d or Tdap) 08/03/2028 08/03/2018 INFLUENZA VACCINE Completed 05/14/2024, , 05/04/2020, Additional history exists Procedures Procedure Name Priority Date/Time Associated Diagnosis Comments COMPREHENSIVE METABOLIC PANEL Routine 09/20/2024 7:58 AM CIGARETTE CATCHER Screening for condition CBC WITH DIFFERENTIAL Routine 09/20/2024 7:58 AM CIGARETTE CATCHER Benign hypertension Screening for condition LIPID PANEL Routine 09/20/2024 7:58 AM CIGARETTE CATCHER Screening for condition TSH Routine 09/20/2024 7:58 AM CIGARETTE CATCHER Screening for condition VITAMIN D 25 HYDROXY Routine 09/20/2024 7:58 AM CIGARETTE CATCHER Low vitamin D level MAMMO 3D ROSIE DIAGNOSTIC BILAT W OR WO CAD Routine 12/27/2023 7:21 AM CDT COLON CANCER SCREEN, STOOL DNA Routine 03/15/2023 6:05 PM CDT Screen for colon cancer HEMOGLOBIN A1C Routine 02/17/2022 2:38 PM CDT Audible heartbeat in ear, right POC OCCULT BLOOD UP TO 3 CARDS Routine 04/09/2019 8:34 AM CDT Screening for condition from Last 3 Months or Most Recently Relevant to Health Maintenance Results * (ABNORMAL) CBC WITH DIFFERENTIAL (09/20/2024 7:58 AM CIGARETTE CATCHER) WBC 4.0 3.8 - 10.8 Thousand/u L [facility] RBC 5.02 3.80 - 5.10 Million/uL [facility] HEMOGLOBIN 15.2 11.7 - 15.5 g/dL [facility] HEMATOCRIT 45.9(H) 35.0 - 45.0 % [facility] MCV 91.4 80.0 - 100.0 fL [facility] MCH 30.3 27.0 - 33.0 pg [facility] MCHC 33.1 32.0 - 36.0 g/dL [facility] Comment: For adults, a slight decrease in the calculated MCHC value (in the range of 30 to 32 g/dL) is most likely not clinically significant; however, it should be interpreted with caution in correlation with other red cell parameters and the patient's clinical condition. RDW 12.5 11.0 - 15.0 % [facility] PLATELETS 197 140 - 400 Thousand/u L [facility] MPV 13.1(H) 7.5 - 12.5 fL [facility] NEUTROPHIL ABSOLUTE 3,016 1,500 - 7,800 cells/uL [facility] LYMPHOCYTE ABSOLUTE 612(L) 850 - 3,900 cells/uL [facility] MONOCYTE ABSOLUTE 312 200 - 950 cells/uL [facility] EOSINOPHIL ABSOLUTE 40 15 - 500 cells/uL [facility] BASOPHILS ABSOLUTE 20 0 - 200 cells/uL [facility] NEUTROPHIL 75.4 % [facility] LYMPHOCYTES 15.3 % [facility] MONOCYTE 7.8 % [facility] EOSINOPHILS 1.0 % [facility] BASOPHILS 0.5 % [facility] Comment: Test Performed at: [facility] [address] [place] [address] Neal Cordero MD Blood 09/20/2024 7:58 AM CIGARETTE CATCHER 09/21/2024 8:04 AM CIGARETTE CATCHER us Maria De Jesus Voss MD HEMATOLOGY ORDERABLES Final Re sult [facility] [phone] [facility] [address] [place] [phone] * (ABNORMAL) VITAMIN D 25 HYDROXY (09/20/2024 7:58 AM CIGARETTE CATCHER) VITAMIN D, 25 OH, TOTAL 14(L) 30 - 100 ng/mL [facility] Comment: Vitamin D Status 25-OH Vitamin D: Deficiency: <20 ng/mL Insufficiency: 20 - 29 ng/mL Optimal: > or = 30 ng/mL For 25-OH Vitamin D testing on patients on D2-supplementation and patients for whom quantitation of D2 and D3 fractions is required, the [facility]) 25-OH VIT D, (D2,D3), LC/MS/MS is recommended: order code 87123 (patients >2yrs). See Note 1 Note 1 For additional information, please refer to http://education.Fluidinova - [employer]os/faq/IIT407 (This link is being provided for informational/ educational purposes only.) Test Performed at: [facility] [address] Neal Cordero MD Blood 09/20/2024 7:58 AM CIGARETTE CATCHER 09/21/2024 8:04 AM CIGARETTE CATCHER Maria De Jesus Voss MD CHEMISTRY ORDERABLES Final Res ult Performing Organization Address [facility] Co de Phone Number [facility] [phone] [address] * TSH (09/20/2024 7:58 AM CIGARETTE CATCHER) Pathologist [facility] TSH 0.82 mIU/L [facility] Comment: Reference Range > or = 20 Years 0.40-4.50 Ranges First trimester 0.26-2.66 Second trimester 0.55-2.73 Third trimester 0.43-2.91 Test Performed at: [facility] [place] [address] Neal Cordero MD Blood 09/20/2024 7:58 AM CIGARETTE CATCHER 09/21/2024 8:04 AM CIGARETTE CATCHER us Maria De Jesus Voss MD CHEMISTRY ORDERABLES Final Res ult Performing Organization Address [facility]/ZIP Co de Phone Number [facility] [phone] [facility] [address] * (ABNORMAL) LIPID PANEL (09/20/2024 7:58 AM CIGARETTE CATCHER) Pathologist [facility] CHOLESTEROL 184 <200 mg/dL [facility] HDL 63 > OR = 50 mg/dL [facility] TRIGLYCERIDE 61 <150 mg/dL [facility] LDL CALCULATED 106(H) mg/dL (calc) [facility] Comment: Reference range: <100 Desirable range <100 mg/dL for primary prevention; <70 mg/dL for patients with CHD or diabetic patients with > or = 2 CHD risk factors. LDL-C is now calculated using the Santiago calculation, which is a validated novel method providing better accuracy than the Friedewald equation in the estimation of LDL-C. Leo SS et al. EVERETT. 2013;310(19): 4051-2029 (http://education.Fluidinova - [employer] Fl[employer]os/faq/IIM926) CHOL/HDL RATIO 2.9 <5.0 (calc) [facility] NON-HDL CHOLESTEROL 121 <130 mg/dL (calc) [facility] Comment: For patients with diabetes plus 1 major ASCVD risk factor, treating to a non-HDL-C goal of <100 mg/dL (LDL-C of <70 mg/dL) is considered a therapeutic option. Test Performed at: [facility] [address] [place] [address] Neal Cordero MD Blood 09/20/2024 7:58 AM CIGARETTE CATCHER 09/21/2024 8:04 AM CIGARETTE CATCHER us Maria De Jesus Voss MD CHEMISTRY ORDERABLES Final Res ult [facility] [phone] [facility] [address] [place] [address] * COMPREHENSIVE METABOLIC PANEL (09/20/2024 7:58 AM CIGARETTE CATCHER) GLUCOSE 75 65 - 99 mg/dL [facility] Comment: Fasting reference interval BUN 10 7 - 25 mg/dL [facility] CREATININE 0.76 0.50 - 1.03 mg/dL [facility] GFR 95 > OR = 60 mL/min/1. 73m2 [facility] BUN/CREAT RATIO SEE NOTE: 6 - 22 (calc) [facility] Comment: Not Reported: BUN and Creatinine are within reference range. SODIUM 139 135 - 146 mmol/L [facility] POTASSIUM 4.1 3.5 - 5.3 mmol/L [facility] CHLORIDE 103 98 - 110 mmol/L [facility] CO2 28 20 - 32 mmol/L [facility] CALCIUM 9.1 8.6 - 10.4 mg/dL [facility] TOTAL PROTEIN 7.0 6.1 - 8.1 g/dL [facility] ALBUMIN 4.4 3.6 - 5.1 g/dL [facility] GLOBULIN 2.6 1.9 - 3.7 g/dL (calc) [facility] ALBUMIN/GLOBULIN RATIO 1.7 1.0 - 2.5 (calc) [facility] BILIRUBIN TOTAL 0.5 0.2 - 1.2 mg/dL [facility] ALKALINE PHOSPHATASE 51 37 - 153 U/L [facility] AST 22 10 - 35 U/L [facility] ALT 18 6 - 29 U/L [facility] Comment: Test Performed at: [facility] [address] [place] [address] Neal Cordero MD Blood 09/20/2024 7:58 AM CIGARETTE CATCHER 09/21/2024 8:04 AM CIGARETTE CATCHER us Maria De Jesus Voss MD CHEMISTRY ORDERABLES Final Res ult [facility] [phone] [facility] [address] [place] [address] * MAMMO 3D ROSIE DIAGNOSTIC BILAT W OR WO CAD (12/27/2023 7:21 AM CDT) Anatomical Region Laterality Modality Breast Bilateral Mammography us Frida FIGUEROA MAMMO ORDERABLES Edited Resu lt - Final * COLON CANCER SCREEN, STOOL DNA (03/15/2023 6:05 PM CDT) COLOGUARD RESULT Negative Negative [facility] Comment: NEGATIVE TEST RESULT. A negative Cologuard result indicates a low likelihood that a colorectal cancer (CRC) or advanced adenoma (adenomatous polyps with more advanced pre-malignant features) is present. The chance that a person with a negative Cologuard test has a colorectal cancer is less than 1 in 1500 (negative predictive value >99.9%) or has an advanced adenoma is less than 5.3% (negative predictive value 94.7%). These data are based on a prospective cross-sectional study of 10,000 individuals at average risk for colorectal cancer who were screened with both Cologuard and colonoscopy. (Oniel Ferrer et al, N Engl J Med 2014;370(14):0913-9791) The normal value (reference range) for this assay is negative. COLOGUARD RE-SCREENING RECOMMENDATION: Periodic colorectal cancer screening is an important part of preventive healthcare for asymptomatic individuals at average risk for colorectal cancer. Following a negative Cologuard result, the [place] Cancer Society and U.S. Multi-Society Task Force screening guidelines recommend a Cologuard re-screening interval of 3 years. References: [place] Cancer Society Guideline for Colorectal Cancer Screening: https://www.cancer.org/cancer/kilgx-uddkxn-xrvkek/cyaufzoyb-iukukurha-zmjirqn/ac s-rec ommendations.html.; Rommel MAURICIO, [place], Ildefonso EcheverriaK, Colorectal Cancer Screening: Recommendations for Physicians and Patients from the U.S. Multi-Society Task Force on Colorectal Cancer Screening , Am J Gastroenterology 2017; 112:5548-6313. TEST DESCRIPTION: Composite algorithmic analysis of stool DNA-biomarkers with hemoglobin immunoassay. Quantitative values of individual biomarkers are not reportable and are not associated with individual biomarker result reference ranges. Cologuard is intended for colorectal cancer screening of adults of either sex, 45 years or older, who are at average-risk for colorectal cancer (CRC). Cologuard has been approved for use by the U.S. FDA. The performance of Cologuard was established in a cross sectional study of average-risk adults aged 50-84. Cologuard performance in patients ages 45 to 49 years was estimated by sub-group analysis of near-age groups. Colonoscopies performed for a positive result may find as the most clinically significant lesion: colorectal cancer [4.0%], advanced adenoma (including sessile serrated polyps greater than or equal to 1cm diameter) [20%] or non- advanced adenoma [31%]; or no colorectal neoplasia [45%]. These estimates are derived from a prospective cross-sectional screening study of 10,000 individuals at average risk for colorectal cancer who were screened with both Cologuard and colonoscopy. (Oniel Santos al, N Engl J Med 2014;370(14):7105-2980.) Cologuard may produce a false negative or false positive result (no colorectal cancer or precancerous polyp present at colonoscopy follow up). A negative Cologuard test result does not guarantee the absence of CRC or advanced adenoma (pre-cancer). The current Cologuard screening interval is every 3 years. ([place] Cancer Society and U.S. Multi-Society Task Force). Cologuard performance data in a 10,000 patient pivotal study using colonoscopy as the reference method can be accessed at the following location: www.MENA360/results. Additional description of the Cologuard test process, warnings and precautions can be found at www.payworksrd.BestContractors.com. Stool STOOL SPECIMEN / Unknown 03/15/2023 6:05 PM CDT 03/18/2023 2:32 AM CDT Frida FIGUEROA BODY FLUIDS AND STOOLS Final Result [facility] CLIA # [id number] [address], [address] [place] [address] * HEMOGLOBIN A1C (02/17/2022 2:38 PM CDT) HEMOGLOBIN A1C 5.0 <5.7 % of total Hgb [facility] Comment: For the purpose of screening for the presence of diabetes: <5.7% Consistent with the absence of diabetes 5.7-6.4% Consistent with increased risk for diabetes (prediabetes) > or =6.5% Consistent with diabetes This assay result is consistent with a decreased risk of diabetes. Currently, no consensus exists regarding use of hemoglobin A1c for diagnosis of diabetes in children. According to [place] Diabetes Association (ADA) guidelines, hemoglobin A1c <7.0% represents optimal control in non- diabetic patients. Different metrics may apply to specific patient populations. Standards of Medical Care in Diabetes(ADA). ESTIMATED AVERAGE GLUCOSE (MG/DL) 97 mg/dL [facility] ESTIMATED AVERAGE GLUCOSE (MMOL/L) 5.4 mmol/L [facility] Comment: Test Performed at: [facility] [address] [place] [address] Gary Hood D.O., MPH Blood 02/17/2022 2:38 PM CDT 02/18/2022 4:29 AM CDT us Leah Heller INDUSTRIAL SPRAYPAINTER CHEMISTRY ORDERABLES F inal Result Performing Organization Address [facility]/ZIP Co de Phone Number [facility] [phone] [facility] [address] [place] [address] * POC OCCULT BLOOD UP TO 3 CARDS (04/09/2019 8:34 AM CDT) OCCULT BLOOD 1 CARD POC Negative Negative [facility] [place] OCCULT BLOOD 2 CARD POC Negative Negative [facility] [place] OCCULT BLOOD 3 CARD POC Negative Negative [facility] [place] INTERNAL KIT QC Pass Pass [facility] CARD [address] NUMBER POC [id number] [address] [facility] [place] CARD EXP[place]ATION DATE POC 10/2019 [facility] [place]BER POC [id number] [facility] [place] EX[place] DATE POC 01/2022 [facility] [place] Stool STOOL SPECIMEN / Unknown 04/09/2019 8:34 AM CDT us Sonia Gibbs FIRST AID TEACHER POINT OF CARE TESTING F inal Result Performing Organization Address City/[facility]/ZIP Co de Phone Number [facility] CLIA# [id number] [address] [place] [address] from Last 3 Months or Most Recently Relevant to Health Maintenance Insurance [employer] ALLEGIANCE OPEN ACCESS Advance Directives For more information, please contact: [phone] * Full Code (Latest Code Status on File) Date Activated Date Inactivated Comments 07/10/2019 11:43 AM 07/10/2019 4:58 PM * Full Code Date Activated Date Inactivated Comments 07/10/2019 10:56 AM 07/10/2019 11:43 AM Care Teams Assembler Dc Field Yoke Relationship Specialty Start Date End Date Maria De Jesus Voss MD [address] [place] [phone] PCP - General Internal Medicine 02/06/24
== END 2024-11-01 08:57 | disposition home or self-care (01) ==
LOC: ANHSURGERY 09:02
PROVIDERS: PCP Internal Medicine; Visit Provider Obstetrics & Gynecology
DX: Z01.818 Encounter for other preprocedural examination (principal); N83.209 Unspecified ovarian cyst, unspecified side; I10 Essential (primary) hypertension
CPT/HCPCS: 36415; 86850; 86900; 86901; 93005

== ENCOUNTER 2024-11-06 00:46 | Day surgery (SDC) | payer OTHER, SELFPAY ==
[2024-10-29 14:31] VITALS: BMI 26.6
--- NOTE | 2024-10-29 14:32 | PC.NURSE ---
Report to the Outpatient Waiting Room, entrance under the green pavilion located off [facility], at time _1200_ on date _[id number]_. Planned Procedure Time: _2pm_.? Time changes happen often and if your time is changed the preop area will call you the afternoon before. - You and your visitor will be asked to self-screen and do not enter if you have any COVID symptoms. Please call surgeon if you need to reschedule. - A mask is optional within the hospital at this time. Patients may have clear liquids (water, carbonated beverages, clear teas, apple juice) until 3 hours prior to surgery with a maximum of 20 ounces. - No food from midnight until time of surgery and no smoking, or chewing tobacco (or any form of nicotine). No chewing gum, candy or mints. Take only the following medications with a SIP of water on the morning of surgery: __None DO NOT STOP ANY OF YOUR OTHER PRESCRIPTION MEDICATIONS PRIOR TO SURGERY EXCEPT THE FOLLOWING Hold all vitamins and supplements for 3 days per anesthesiologist. Patient has also stopped Zepbound with last dose 10-25-2024 Medications to discontinue per physician Date to take last dose Please no make-up, nail serbian, hairspray, perfume, deodorant, or body powder the day of surgery.? No jewelry (including any body piercings) or valuables the day of surgery, leave them at home.? Please take a shower or bath the night before, or the morning of, surgery with an antibacterial soap.? Wear comfortable, loose fitting clothing.? - Jewelry must be removed prior to entering the operating room.? Rings and piercings that are not removed may be cut off. - The hospital will not accept responsibility for valuables.? - Please leave all valuables, including medications, at home the day of surgery. If you are going home after surgery, a licensed drop hammer pile driver operator must drive you home.? - NO public transportation without another adult if you receive anesthesia. - We recommend that an adult stay with you for 24 hours following discharge. - We also recommend that you do not drive, make important decision, drink alcoholic beverages, or take any drugs that were not prescribed by your health care provider for at least 24 hours after your discharge time. Follow any additional instructions given to you from your surgeon. Telephone instructions given to __Shannon__and asked if any additional questions and then verbalized understanding. Patient advised to call surgeon office or pre surgery nurse liaison [phone] if any additional questions.
[2024-11-06] VITALS (9 sets, daily range): BP systolic 127–152; BP diastolic 71–113; PULSE 61–80; RESP 14–18; TEMP 36.2–36.3; O2SAT 99–100; BMI 26.6
--- OUTSIDE RECORDS SUMMARY | 2024-11-06 00:48 | XMS_ITS | Clinical Summary ---
Author Organization [facility] Care Team Providers Care Refinery Operator Assistant Name Role Phone Unavailable Primary Care Provider Unavailabl e Social History Tobacco Use Types Packs/Day Years Used Date Smoking Tobacco: Never Assessed Comments Unknown Sex and Gender Information Value Date Recorded Sex Assigned at Not on file Legal Sex Female 1:35 PM PRODUCTION SUPERINTENDENT Gender Identity Not on file Sexual Orientation [...]
--- OUTSIDE RECORDS SUMMARY | 2024-11-06 00:48 | XMS_ITS | Clinical Summary ---
Author Organization [facility] [address] [address] Care Team Providers Care Pediatric Physician Assistant Name Role Phone Angelique Stuart MD Primary [...] on file Legal Sex Female 6:44 PM WAREHOUSE UNLOADER Gender Identity Not on file Sexual Orientation Not on file Obstetrics History Last Filed Vital Signs Vital Sign Reading Time Taken Comments Blood Pressure 133/85 06/23/2022 10:20 AM WAREHOUSE UNLOADER Pulse 91 06/23/2022 10:20 AM WAREHOUSE UNLOADER Temperature - - Respiratory Rate - - Oxygen Saturation - - Inhaled Oxygen Concentration - - Weight 79.8 kg (176 lb) 06/23/2022 10:20 AM WAREHOUSE UNLOADER Height 165.1 cm (5' 5 ) 06/23/2022 10:20 AM WAREHOUSE UNLOADER Body Mass Index 29.29 06/23/2022 10:20 AM WAREHOUSE UNLOADER Plan of Treatment Health Maintenance Due Date [...] this topic Insurance MALIHA ALLEGIANCE Care Teams Pediatric Physician Assistant Relationship Specialty Start Date End Date Angelique Stuart MD PCP - General Family Medicine 06/14/22
--- OUTSIDE RECORDS SUMMARY | 2024-11-06 00:48 | XMS_ITS | Clinical Summary ---
Author Organization [facility] Address [facility] [place] [address] Care Team Providers Care Cull Grader Name Role Phone Maria De Jesus Voss MD Primary Care Provider [phone] Allergies Active Allergy Reactions Criticality Noted Date [...] Department Care Team Description 10/08/2024 11:31 AM STUDENT ADVISOR - 10/08/2024 4:33 PM STUDENT ADVISOR Emergency [facility] [place] [address] Aylin Art NP Abdominal Pain Discharge Disposition: Home or Self Care (Routine Discharge) 10/08/2024 Travel from Last 3 Months Social History Tobacco Use Types Packs/Day Years Used Date Smoking Tobacco: Never Smokeless Tobacco: Never Tobacco Cessation:Counseling Given: Not Answered Comments No Sex and Gender Information Value Date Recorded Sex Assigned at Female 10/08/2024 10:58 AM STUDENT ADVISOR Legal Sex Female 6:59 PM CDT Gender Identity Not on file Sexual Orientation Not on file Last Filed Vital Signs Vital Sign Reading Time Taken Comments Blood Pressure 141/86 10/08/2024 3:41 PM STUDENT ADVISOR Pulse 66 10/08/2024 3:41 PM STUDENT ADVISOR Temperature 36.6 C (97.9 F) 10/08/2024 10:55 AM STUDENT ADVISOR Respiratory Rate 18 10/08/2024 3:41 PM STUDENT ADVISOR Oxygen Saturation 100% 10/08/2024 3:41 PM STUDENT ADVISOR Inhaled Oxygen Concentration - - Weight 76.6 kg (168 lb 14 oz) 10/08/2024 10:55 A M STUDENT ADVISOR Height 165.1 cm (5' 5 ) 10/08/2024 10:55 AM STUDENT ADVISOR Body Mass Index 28.1 10/08/2024 10:55 AM STUDENT ADVISOR Plan of Treatment Health Maintenance Due Date [...] OB COMP TV STAT 10/08/2024 2:[address] ABD+PEL W CON STAT 10/08/2024 12:1 4 PM STUDENT ADVISOR LIPASE STAT 10/08/2024 11:41 AM STUDENT ADVISOR COMPREHENSIVE METABOLIC PANEL STAT 10/08/2024 11:41 AM STUDENT ADVISOR CBC W/DIFF AUTOMATED STAT 10/08/2024 11:41 AM STUDENT ADVISOR URINE BACTERIA CULTURE STAT 11:37 AM STUDENT ADVISOR HC URINALYSIS AUTO W/O MICRO STAT 10/08/2024 11:37 AM STUDENT ADVISOR from Last 3 Months Results * US PELVIC NON OB COMP TV (10/08/2024 2:30 PM STUDENT ADVISOR) Anatomical Region Laterality Modality Pelvis Ultrasound 10/08/2024 2:39 PM STUDENT ADVISOR Impressions 10/08/2024 2:55 PM STUDENT ADVISOR =====IMPRESSION:===== 1. No findings of ovarian torsion. 2. Status post hysterectomy. 3. Left ovarian 2.8 cm complex possibly hemorrhagic cyst. 4. Left ovarian small 1.7 cm hypoechoic possible involuting cyst or follicle. Ordered By: AYLIN ART Interpreted By: Florentino Adams MD, 10/08/2024 2:39 PM Narrative 10/08/2024 2:55 PM STUDENT ADVISOR [address] [address] EXAMINATION: Ultrasound transvaginal pelvis non-OB EXAM DATE/TIME: [...] Procedure Note Florentino Adams MD - 10/08/[address] [address] EXAMINATION: Ultrasound transvaginal pelvis non-OB EXAM DATE/TIME: [...] MD, 10/08/2024 2:39 PM us Aylin Art STRAW HAT PLUNGER OPERATOR ULTRASOUND Final Result * CT ABD+PEL W CON (10/08/2024 12:14 PM STUDENT ADVISOR) Anatomical Region Laterality Modality Abdomen Computed Tomogra phy 10/08/2024 12:5 5 PM STUDENT ADVISOR Impressions 10/08/2024 1:15 PM STUDENT ADVISOR =====IMPRESSION:===== 1. Left ovarian cyst measuring 3.6 [...] 10/08/2024 12:55 PM Narrative 10/08/2024 1:15 PM STUDENT ADVISOR [address] [address] EXAMINATION: CT Abdomen and Pelvis with contrast [...] fracture or destructive bone lesion. Procedure Note [place], Josh Davila MD - 10/08/[address] [address] EXAMINATION: CT Abdomen and Pelvis with contrast [...] Oconnor MD, 10/08/2024 12:55 PM Aylin Art STRAW HAT PLUNGER OPERATOR CT Final Result * (ABNORMAL) COMPREHENSIVE METABOLIC PANEL (10/08/2024 11:41 AM STUDENT ADVISOR) GLUCOSE 78 70 - 99 MG/DL 10/08/2024 [...] calculating drug doses. 10/08/2024 11:4 1 AM STUDENT ADVISOR Aylin Art NP LABORATORY Final Result [facility] [address] [place] [address], [place] [phone] * (ABNORMAL) CBC W/DIFF AUTOMATED (10/08/2024 11:41 AM STUDENT ADVISOR) Pathologist [facility] WBC 8.64 4.5 - 11.0 x10'3/uL 10/08/2024 11:51 AM STUDENT ADVISOR [facility] RBC 4.93 4.20 - 5.40 x10'6/uL [...] 32.0 - 36.0 G/DL 10/08/2024 11:51 AM STUDENT ADVISOR [facility] RDW 12.1 11.5 - 14.5 % 10/08/2024 11:51 AM [facility] PLT 203 130 - 400 x10'3/uL 10/08/2024 11:51 AM [facility] MPV 11.9 9.3 - 12.2 FL 10/08/2024 11:51 AM [facility] DIFFERENTIAL TYPE AUTOMATED DIFFERENTIAL 10/08/2024 11:51 AM STUDENT ADVISOR [facility] NEUTROPHILS % 82.9 % 10/08/2024 11:51 AM STUDENT ADVISOR [facility] LYMPHOCYTES % 9.8 % 10/08/2024 11:51 AM [facility] MONOCYTES % 6.6 % 10/08/2024 11:51 AM [facility] EOSINOPHILS 0.2 % 10/08/2024 11:51 AM STUDENT ADVISOR [facility] BASOPHILS 0.2 % 10/08/2024 11:51 AM STUDENT ADVISOR [facility] IMMATURE GRANS % 0.3 % 10/09/19 11:51 AM [facility] ABS. NEUTROPHILS 7.15 1.80 - 7.70 x10'3/uL 10/08/2024 11:51 AM [facility] ABS. LYMPHOCYTES 0.85(L) 1.00 - 4.80 x10'3/uL 10/08/2024 11:51 AM STUDENT ADVISOR [facility] ABS. MONOCYTES 0.57 0.24 - 0.86 x10'3/uL 10/08/2024 11:51 AM [facility] ABS. EOSINOPHILS 0.02(L) 0.04 - 0.36 x10'3/uL 10/08/2024 11:51 AM STUDENT ADVISOR [facility] ABS. BASOPHILS 0.02 0.01 - 0.08 x10'3/uL 10/08/2024 11:51 AM STUDENT ADVISOR [facility] ABS. IMMATURE GRANULOCYTES 0.03 0.00 - 0.49 x10'3/uL 10/08/2024 11:51 AM [facility] 10/08/2024 11:4 1 AM STUDENT ADVISOR us Aylin Art NP LABORATORY Final Result [facility] [address] [place] [address], [place] [phone] * LIPASE (10/08/2024 11:41 AM STUDENT ADVISOR) LIPASE 42 13 - 75 UNITS/L 10/08/2024 12:13 PM STUDENT ADVISOR [facility] 10/08/2024 11:4 1 AM STUDENT ADVISOR Aylin Art NP LABORATORY Final Result [facility] [address] [place] [address], [place] [phone] * URINALYSIS (10/08/2024 11:37 AM STUDENT ADVISOR) SPECIMEN TYPE URINE CLEAN CATCH 10/08/2024 11:33 AM STUDENT ADVISOR [facility] COLOR (U) LIGHT YELLOW 10/08/2024 11:57 [...] (U) NORMAL NORMAL MG/DL 10/08/2024 11:57 AM STUDENT ADVISOR [facility] KETONES MG/DL (U) NEGATIVE NEGATIVE MG/DL 10/08/2024 11:57 AM STUDENT ADVISOR [facility] UROBILINOGEN NORMAL NORMAL MG/DL 10/08/2024 11:57 AM [facility] BILIRUBIN (U) NEGATIVE NEGATIVE MG/DL 10/08/2024 11:57 AM STUDENT ADVISOR [facility] BLOOD (U) NEGATIVE NEGATIVE 10/08/2024 11:57 AM STUDENT ADVISOR [facility] URINE SPECIMEN OBTAINED BY CLEAN CATCH PROCEDURE / Unknown 10/08/2024 11:37 AM STUDENT ADVISOR Aylin Art NP URINE ORDERABLES Final Result Performing Organization Address [facility] Co de Phone Number [facility] [address] [place] [address], [place] [phone] * CULTURE URINE (10/08/2024 11:37 AM STUDENT ADVISOR) SPEC DESCRIPTION URINE CLEAN CATCH 10/08/2024 11:33 AM STUDENT ADVISOR [facility] SPECIAL REQUESTS NO SPECIAL REQUEST 10/08/2024 11:33 AM [facility] CULTURE RESULT NO GROWTH 2 DAYS 10/10/2024 7:10 AM STUDENT ADVISOR [facility] URINE SPECIMEN OBTAINED BY CLEAN CATCH PROCEDURE / Unknown 10/08/2024 11:37 AM STUDENT ADVISOR 10/08/2024 11:46 AM STUDENT ADVISOR Aylin Art NP MICROBIOLOGY - GENERAL ORDERAB LES Final Result Performing Organization Address City/[facility]/ZIP Co de Phone Number [facility] [address] [place] [address], [place] [phone] from Last 3 Months Insurance [facility] Care Teams Cull Grader Relationship Specialty Start Date End Date Maria De Jesus Voss MD [address] [place] [address] [place] [address] PCP - General INTERNAL MEDICINE 10/08/24
--- OUTSIDE RECORDS SUMMARY | 2024-11-06 00:48 | XMS_ITS | Referral Summary ---
Author Organization [facility] [address] Address [address] [place] [phone] Care Team Providers Care Marine Equipment Engineer Name Role Phone Angelique Stuart MD Primary [...] on file Legal Sex Female 6:44 PM PATIENT ATTENDANT Gender Identity Not on file Sexual Orientation Not on file Last Filed Vital Signs Vital Sign Reading Time Taken Comments Blood Pressure 133/85 06/23/2022 10:20 AM PATIENT ATTENDANT Pulse 91 06/23/2022 10:20 AM PATIENT ATTENDANT Temperature - - Respiratory Rate - - Oxygen Saturation - - Inhaled Oxygen Concentration - - Weight 79.8 kg (176 lb) 06/23/2022 10:20 AM PATIENT ATTENDANT Height 165.1 cm (5' 5 ) 06/23/2022 10:20 AM PATIENT ATTENDANT Body Mass Index 29.29 06/23/2022 10:20 AM PATIENT ATTENDANT Plan of Treatment Not on file Insurance [employer] Care Teams Marine Equipment Engineer Relationship Specialty Start Date End Date Angelique Stuart MD PCP - General Family Medicine 06/14/22
--- OUTSIDE RECORDS SUMMARY | 2024-11-06 00:49 | XMS_ITS | Clinical Summary ---
Author Organization [facility] Address [address] [place] [address] Care Team Providers Care Licensed Plumber Name Role Phone Unavailable Primary Care Provider Unavailabl e Source Comments [facility],non-owned Affiliates and Associated Physician Practices is amultiple site organization consisting of ambulatory clinics and hospital sitesin [place], [place], [place] and [place]. This disclosure is being madepursuant to the Care Everywhere program and may not contain all information available regarding this patient. Last updated 18.[facility] Allergies Active Allergy Reactions Criticality Noted Date [...] PM CDT Narrative Resulting Agency Comment [facility] [address] [id number] Amanda Boles [facility] TRY ORDERABLES [facility] ACCOUNT BILL from Last 3 Months or Most Recently Relevant to Health Maintenance Advance Directives * Full Code (Latest Code Status on File) Date Activated Date Inactivated Comments 02/19/2014 11:47 AM 02/21/2014 2:39 PM
--- OUTSIDE RECORDS SUMMARY | 2024-11-06 00:49 | XMS_ITS | Clinical Summary ---
Author Organization [facility] [place] Address [address] [place] [address] Care Team Providers Care Hand Paster Name Role Phone Maria De Jesus Voss MD Primary Care Provider [phone] Allergies Active Allergy Reactions Criticality Noted Date Comments Sulfa (Sulfonamide Antibiotics) Rash Low 11/05 Sulfasalazine Rash Low 06/24/2013 Medications fluticasone propionate (FLONASE) 50 mcg/spray [place], Suspension nasal inhaler Administer 2 Sprays in [...] Type Department Care Team Description 10/31/2024 Telephone [facility] [address] [place] [phone] Maria De Jesus Voss MD Upcoming Surgery 10/23/2024 External Device Data STL ABSTRACTION Provider, Abstract 10/12/2024 External Device Data ST[facility] ABSTRACTION Provider, Abstract 10/11/2024 External Device Data [facility] ABSTRACTION Provider, Abstract 10/08/2024 External Device Data [facility] ABSTRACTION Provider, Abstract 09/27/2024 1:00 PM BEAD FORMING MACHINE OPERATOR Office Visit [facility] [address] [place] [phone] Maria De Jesus Voss MD Obesity, Class I, BMI 30-34.9 (Primary Dx); Low vitamin D level; Benign hypertension; Situational depression 09/24/2024 External Device Data STL ABSTRACTION Provider, Abstract 09/23/2024 Results Follow-Up [place] [address] [place] [place] [phone] Maria De Jesus Voss MD VITAMIN D 25 HYDROXY, TSH, LIPID PANEL, Additional followed-up results: 2 09/20/2024 8:00 AM BEAD FORMING MACHINE OPERATOR Office Visit [facility] [address] [place] [phone] Low vitamin D level; Screening for condition; Benign hypertension 09/20/2024 Refill [facility] [address] [place] [phone] Maria De Jesus Voss MD Obesity, Class I, BMI 30-34.9 08/28/2024 1:00 PM BEAD FORMING MACHINE OPERATOR Office Visit [facility] [address] [place] [phone] Maria De Jesus Voss MD Benign hypertension [...] Comments Blood Pressure 124/84 09/27/2024 1:05 PM BEAD FORMING MACHINE OPERATOR Pulse 64 09/27/2024 1:05 PM BEAD FORMING MACHINE OPERATOR Temperature 37.1 C (98.7 F) 08/28/2024 12:58 PM BEAD FORMING MACHINE OPERATOR Respiratory Rate 18 09/27/2024 1:05 PM BEAD FORMING MACHINE OPERATOR Oxygen Saturation 96% 09/27/2024 1:05 PM BEAD FORMING MACHINE OPERATOR Inhaled Oxygen Concentration - - Weight 78.4 kg (172 lb 12.8 oz) 09/27/2024 1:05 PM BEAD FORMING MACHINE OPERATOR Height 165.1 cm (5' 5 ) 09/27/2024 1:05 PM BEAD FORMING MACHINE OPERATOR Body Mass Index 28.76 09/27/2024 1:05 PM BEAD FORMING MACHINE OPERATOR Plan of Treatment Upcoming Encounters Date Type Department Care Team (Late st Contact Info) Description 11/25/2024 1:00 PM CDT Procedure visit [facility] [employer] [place] [address] [place] [phone] 12/20/2024 10:00 AM CDT Office Visit [facility] Oncology and Hematology - [place] [address] [facility] [address] [place] [address] Johnathan Romero MD [address] [facility] [address] [place] [address] Health Maintenance Due Date Last [...] COMPREHENSIVE METABOLIC PANEL Routine 09/20/2024 7:58 AM BEAD FORMING MACHINE OPERATOR Screening for condition CBC WITH DIFFERENTIAL Routine 09/20/2024 7:58 AM BEAD FORMING MACHINE OPERATOR Benign hypertension Screening for condition LIPID PANEL Routine 09/20/2024 7:58 AM BEAD FORMING MACHINE OPERATOR Screening for condition TSH Routine 09/20/2024 7:58 AM BEAD FORMING MACHINE OPERATOR Screening for condition VITAMIN D 25 HYDROXY Routine 09/20/2024 7:58 AM BEAD FORMING MACHINE OPERATOR Low vitamin D level MAMMO 3D ROSIE [...] (ABNORMAL) CBC WITH DIFFERENTIAL (09/20/2024 7:58 AM BEAD FORMING MACHINE OPERATOR) WBC 4.0 3.8 - 10.8 Thousand/u L [...] [facility] Comment: Test Performed at: [facility] [address] [place] [phone] Neal Cordero MD Blood 09/20/2024 7:58 AM BEAD FORMING MACHINE OPERATOR 09/21/2024 8:04 AM BEAD FORMING MACHINE OPERATOR us Maria De Jesus Voss MD HEMATOLOGY ORDERABLES Final Re sult [facility] [phone] [facility] [address] [place] [phone] * (ABNORMAL) VITAMIN D 25 HYDROXY (09/20/2024 7:58 AM BEAD FORMING MACHINE OPERATOR) VITAMIN D, 25 OH, TOTAL 14(L) 30 - 100 ng/mL [facility] Comment: Vitamin D Status 25-OH Vitamin D: Deficiency: <20 ng/mL Insufficiency: 20 - 29 ng/mL Optimal: > or = 30 ng/mL For 25-OH Vitamin D testing on patients on D2-supplementation and patients for whom quantitation of D2 and D3 fractions is required, the [facility](TM) 25-OH VIT D, (D2,D3), LC/MS/MS is recommended: order code 00484 (patients >2yrs). See Note 1 Note 1 For additional information, please refer to http://education.LocalBonus/faq/END874 (This link is being provided for informational/ educational purposes only.) Test Performed at: [facility] [address] Neal Cordero MD Blood 09/20/2024 7:58 AM BEAD FORMING MACHINE OPERATOR 09/21/2024 8:04 AM BEAD FORMING MACHINE OPERATOR Maria De Jesus Voss MD CHEMISTRY ORDERABLES Final Res ult Performing Organization Address [facility] Co de Phone Number [facility] [phone] [address] * TSH (09/20/2024 7:58 AM BEAD FORMING MACHINE OPERATOR) Pathologist [facility] TSH 0.82 mIU/L [facility] Comment: Reference Range > or = 20 Years 0.40-4.50 Ranges First trimester 0.26-2.66 Second trimester 0.55-2.73 Third trimester 0.43-2.91 Test Performed at: [facility] [place] [address] Neal Cordero MD Blood 09/20/2024 7:58 AM BEAD FORMING MACHINE OPERATOR 09/21/2024 8:04 AM BEAD FORMING MACHINE OPERATOR us Maria De Jesus Voss MD CHEMISTRY ORDERABLES Final Res ult Performing Organization Address [facility]/ZIP Co de Phone Number [facility] [phone] [address] * (ABNORMAL) LIPID PANEL (09/20/2024 7:58 AM BEAD FORMING MACHINE OPERATOR) Pathologist [facility] CHOLESTEROL 184 <200 mg/dL [facility] [...] LDL-C. Leo SS et al. EVERETT. 2013;310(19): 1610-7483 (http://education.LocalBonus/faq/HLX017) CHOL/HDL RATIO 2.9 <5.0 (calc) [facility] NON-HDL CHOLESTEROL 121 <130 mg/dL (calc) [facility] Comment: For patients with diabetes plus 1 major ASCVD risk factor, treating to a non-HDL-C goal of <100 mg/dL (LDL-C of <70 mg/dL) is considered a therapeutic option. Test Performed at: [facility] [address] [place] [address] Neal Cordero MD Blood 09/20/2024 7:58 AM BEAD FORMING MACHINE OPERATOR 09/21/2024 8:04 AM BEAD FORMING MACHINE OPERATOR us Maria De Jesus Voss MD CHEMISTRY ORDERABLES Final Res ult [facility] [phone] [facility] [address] [place] [address] * COMPREHENSIVE METABOLIC PANEL (09/20/2024 7:58 AM BEAD FORMING MACHINE OPERATOR) GLUCOSE 75 65 - 99 mg/dL [facility] Comment: Fasting reference interval BUN 10 [...] [facility] Comment: Test Performed at: [facility] [address] [place] [address] Neal oCrdero MD Blood 09/20/2024 7:58 AM BEAD FORMING MACHINE OPERATOR 09/21/2024 8:04 AM BEAD FORMING MACHINE OPERATOR us Maria De Jesus Voss MD CHEMISTRY ORDERABLES Final Res ult [facility] [phone] [facility] [address] [place] [address] * MAMMO 3D ROSIE DIAGNOSTIC BILAT W OR WO CAD (12/27/2023 7:21 AM CDT) Anatomical Region Laterality Modality Breast Bilateral Mammography us Frida FIGUEROA MAMMO ORDERABLES Edited Resu lt - Final * COLON CANCER SCREEN, STOOL DNA (03/15/2023 6:05 PM CDT) COLOGUARD RESULT Negative Negative [employer] Comment: NEGATIVE TEST RESULT. A negative Cologuard [...] Ferrer et al, N Engl J Med 2014;370(14):1379-6453) The normal value (reference range) for this assay is negative. COLOGUARD RE-SCREENING RECOMMENDATION: Periodic colorectal cancer screening is an important part of preventive healthcare for asymptomatic individuals at average risk for colorectal cancer. Following a negative Cologuard result, the [place] Cancer Society and U.S. Multi-Society Task Force screening guidelines recommend a Cologuard re-screening interval of 3 years. References: [place] [employer] Society Guideline for Colorectal Cancer Screening: https://www.cancer.org/cancer/vyidp-ouajlc-pkgbxf/meplkdefv-uxivwwgke-drjqdze/ac s-rec ommendations.html.; Rommel MAURICIO, [place], Ildefonso EcheverriaK, Colorectal Cancer Screening: Recommendations for Physicians and Patients from the U.S. Multi-Society Task Force on Colorectal Cancer Screening , Am J Gastroenterology 2017; 112:4593-1852. TEST DESCRIPTION: Composite algorithmic analysis of stool [...] (Oniel Santos al, N Engl J Med 2014;370(14):0393-2900.) Cologuard may produce a false negative or false positive result (no colorectal cancer or precancerous polyp present at colonoscopy follow up). A negative Cologuard test result does not guarantee the absence of CRC or advanced adenoma (pre-cancer). The current Cologuard screening interval is every 3 years. ([employer] [place] Cancer Society and U.S. Multi-Society Task Force). Cologuard performance data in a 10,000 patient pivotal study using colonoscopy as the reference method can be accessed at the following location: www.Perfecto Mobile/results. Additional description of the Cologuard test process, warnings and precautions can be found at [email or web address].TuCreaz.com Application. Stool STOOL SPECIMEN / Unknown 03/15/2023 6:05 PM CDT 03/18/2023 2:32 AM CDT Frida FIGUEROA BODY FLUIDS AND STOOLS Final Result [employer] CLIA # [id number] [address], [address] [place] [address] * HEMOGLOBIN A1C (02/17/2022 2:38 PM CDT) [...] diagnosis of diabetes in children. According to [place] Diabetes Association (ADA) guidelines, hemoglobin A1c <7.0% represents optimal control in non- diabetic patients. Different metrics may apply to specific patient populations. Standards of Medical Care in Diabetes(ADA). ESTIMATED AVERAGE GLUCOSE (MG/DL) 97 mg/dL [facility] ESTIMATED AVERAGE GLUCOSE (MMOL/L) 5.4 mmol/L [facility] Comment: Test Performed at: [facility] [address] [place] [address] Gary Hood D.O., MPH Blood 02/17/2022 2:38 PM CDT 02/18/2022 4:29 AM CDT us Leah Heller MATERIALS ENGINEERING TECHNICIAN CHEMISTRY ORDERABLES F inal Result Performing Organization Address [facility]/ZIP Co de Phone Number [facility] [phone] [facility] [address] [place] [address] * POC OCCULT BLOOD UP TO 3 CARDS (04/09/2019 8:34 AM CDT) OCCULT BLOOD 1 CARD POC Negative Negative [facility] [place] OCCULT BLOOD 2 CARD POC Negative Negative [facility] [place] OCCULT BLOOD 3 CARD POC Negative Negative [facility] [place] INTERNAL KIT QC Pass Pass [facility] CARD LOT NUMBER POC [id number] 1L [facility] [place] CARD EXPIRATION DATE POC 10/2019 [facility] [place] POC [id number] [facility] [place] EX[place] DATE POC 01/2022 [facility] [place] Stool STOOL SPECIMEN / Unknown 04/09/2019 8:34 AM CDT us Sonia Gibbs LEAFLET OR NEWSPAPER DELIVERER POINT OF CARE TESTING F inal Result Performing Organization Address City/[facility]/ZIP Co de Phone Number [facility] CLIA# [id number] [address] [place] [address] from Last 3 Months or Most Recently Relevant to Health Maintenance Insurance [employer] OPEN ACCESS Advance Directives For more information, please contact: [phone] * Full Code (Latest Code Status on File) Date Activated Date Inactivated Comments 07/10/2019 11:43 AM 07/10/2019 4:58 PM * Full Code Date Activated Date Inactivated Comments 07/10/2019 10:56 AM 07/10/2019 11:43 AM Care Teams Hand Paster Relationship Specialty Start Date End Date Maria De Jesus Voss MD [address] [place] [phone] PCP - General Internal Medicine 02/06/24
--- OUTSIDE RECORDS SUMMARY | 2024-11-06 00:49 | XMS_ITS | Encounter Summary ---
Author Organization [facility] Address [address] [place] [address] Care Team Providers Care Loss Claim Clerk Name Role Phone Maria De Jesus Voss MD Primary Care Provider [phone] Encounter Details Date Type Department Care Team (Late Contact Info) Description 09/23/2024 Results Follow-Up [facility] [employer] [facility] [address] [place] [address] Maria De Jesus Voss MD [address] [place] [address] VITAMIN D 25 HYDROXY, TSH, [...] Description 11/25/2024 1:00 PM CDT Procedure visit [facility] [employer] [address] [place] [address] 12/20/2024 10:00 AM CDT Office Visit [facility] Oncology and Hematology - [facility] Danish Collins [address] [address] Johnathan Romero MD [address] [facility] [address] [place] [address] Scheduled Orders Name Type Priority Associated Diagnoses Orde r Schedule VITAMIN D 25 HYDROXY Lab Routine Low vitamin D level Expected: 11/21/2024, Expires: 09/23/2025 documented as of this encounter Visit Diagnoses Diagnosis Low vitamin D level- Primary documented in this encounter Care Teams Loss Claim Clerk Relationship Specialty Start Date End Date Maria De Jesus Voss MD [address] [place] [address] [place] [address] PCP - General Internal Medicine 02/06/24 documented as of this encounter
[2024-11-06] MEDS: KETOROLAC 15 MG/ML VIAL (*BKC) IV PUSH (12:20)
[2024-11-06] MEDS: ACETAMINOPHEN 500 MG TABLET 1000 MG PO (12:20)
[2024-11-06] MEDS: LACTATED RINGERS 1,000 ML 30 ML IV CONT ×2 (12:32→15:02)
--- NOTE | 2024-11-06 13:11 | PM.IMHP ---
H&P: HPI History of Present Illness Date/Time: 11/06/24 13:11 Chief Complaint: Pain Narrative: 49 y/o G3 2011 with left adnexal pain and a hemorrhagic-appearing cyst on ultrasound. We had tried expectant management, but pain has persisted and she is interested in surgical management and treatment. Review of Systems Review of Systems: All systems reviewed & are unremarkable except as noted in HPI and below PMFSH Past Medical History Medical History HTN (hypertension) Anemia Leiomyoma Obesity Surgical History Surgical History History of robot-assisted laparoscopic hysterectomy History of delivery SLAP (superior glenoid labrum lesion) History of mandibular surgery History of tubal ligation History of weight loss surgery Family History Family History Other Cancer Heart disease Hypertension Social History Social History Social History: No Smoking status: Never smoker Alcohol intake: current Drinks per week: 4 Living arrangements: with family Spiritual care concerns: No Meds Home Medications and Allergies Home Medications ?Medication ?Instructions ?Recorded ?Confirmed ?Type cholecalciferol (vitamin D3) 50 2,000 unit PO 3XW 08/09/19 11/06/24 History mcg (2,000 unit) capsule (Vitamin D3) sertraline 50 mg tablet 50 mg PO QPM 08/09/19 11/06/24 History hydrocodone 5 mg-acetaminophen 325 1 - 2 tablet PO Q6H PRN pain #30 08/22/19 10/29/24 Rx mg tablet ([place]) tabs ergocalciferol (vitamin D2) 1,250 1,250 mcg PO WEEKLY 10/29/24 11/06/24 History mcg (50,000 unit) capsule (Vitamin D2) lisinopril 20 mg tablet 20 mg PO DAILY 10/29/24 11/06/24 History tirzepatide (weight loss) 5 mg/0.5 5 mg subcut WEEKLY 10/29/24 10/29/24 History mL subcutaneous pen injector (Zepbound) Allergies Allergy/AdvReac Type Severity Reaction Status Date / Time Sulfa (Sulfonamide Allergy Mild Rash Verified 11/06/24 12:38 Antibiotics) Vital Signs Vital Signs - 24 hr 11/06/24 12:35 Temperature 36.2 C L Pulse Rate 80 Respiratory Rate 18 Blood Pressure 141/82 H Pulse Oximetry 100 Oxygen Delivery Room Air Exam Const: Orientation/consciousness: patient oriented x3 Other: Well-developed, well-nourished female in no acute distress. Neck: Thyroid: thyroid normal Lymphatic: no lymphadenopathy noted (in neck, axilla or inguinal nodes) Resp: Effort & Inspection: normal respiratory effort Auscultation: clear to auscultation bilaterally Cardio: Rate: regular rate Rhythm: regular rhythm Heart sounds: S1 normal heart sound present and S2 normal heart sound present GI: Other: ABD: Soft, nontender, nondistended. No guarding or rebound tenderness. No hepatosplenomegaly. : General: Yes no CVA tenderness Other: External genitalia: normal female hair distribution, without lesion. Urethral meatus: no lesion, non prolapsed. Bladder: no mass, nontender Vagina: well-estrogenized, without lesion or discharge. No cystocele or rectocele. Cervix: absent. Uterus: absent. Adnexa: on the right, no mass or tenderness. The left side is tender to deep palpation. Anus/perineum: no lesions, nontender Back/Spine/Pelvis: Back: no CVA tenderness Skin: General skin exam: normal color and no rashes or lesions noted Neuro: General: patient oriented x3 Extrem: Other: Extremities: nontender with no edema Psych: Mental Status: mental status grossly normal Affect: normal affect Assessment and Plan Assessment and plan (1) Left ovarian cyst: Code(s): N83.202 - Unspecified ovarian cyst, left side Status: Acute Assessment and Plan: A: Persistent pain associated with left ovarian cystic mass. P: We have reviewed medical as well as surgical treatment options, and she prefers the latter. Specifically, I have offered her a laparoscopic left salpingooophorectomy. She understands risks of surgery to include risks of anesthesia, risks of pain, infection, bleeding, blood products, thromboembolic phenomena and damage to adjacent structures such as bowel, bladder, ureters, blood vessels and nerves. She understands all these risks and elects to proceed with surgery. (2) Pelvic pain: Code(s): R10.2 - Pelvic and perineal pain Status: Acute
--- NOTE | 2024-11-06 13:23 | WPDHPUPDATE1 ---
History and Physical Update Update Date/Time: 11/06/24 13:23 History and Physical has been reviewed, including an updated exam of the patient. There are NO changes in the patient's condition. Risks, benefits, and alternatives have been discussed and questions answered. Patient agrees to proceed with procedure.
--- NOTE | 2024-11-06 14:02 | WPDANESEPPF ---
Anes - Initial Pre Proc Eval Procedure: Operation Date: 11/06/24 14:00 Proposed Procedures p Laparoscopic Left Salpingo-oophorectomy - Woodrow Robertson MD Date/Time: 11/06/24 14:02 Surgeon: Woodrow Robertson MD Pre Op Diagnosis: left ovarian cyst, pelvic pain Patient Data Age: 49 Gender: F Height: 1.65 m Weight: 72.6 kg Last Vital Signs Temp 97.2 F L 11/06/24 12:35 Pulse 80 11/06/24 12:35 Resp 18 11/06/24 12:35 BP 141/82 H 11/06/24 12:35 Pulse Ox 100 11/06/24 12:35 O2 Del Method Room Air 11/06/24 12:35 Allergies Allergy/AdvReac Type Severity Reaction Status Date / Time Sulfa (Sulfonamide Allergy Mild Rash Verified 11/06/24 12:38 Antibiotics) Home Medications ?Medication ?Instructions ?Recorded ?Confirmed ?Type cholecalciferol (vitamin D3) 50 2,000 unit PO 3XW 08/09/19 11/06/24 History mcg (2,000 unit) capsule (Vitamin D3) sertraline 50 mg tablet 50 mg PO QPM 08/09/19 11/06/24 History ergocalciferol (vitamin D2) 1,250 1,250 mcg PO WEEKLY 10/29/24 11/06/24 History mcg (50,000 unit) capsule (Vitamin D2) lisinopril 20 mg tablet 20 mg PO DAILY 10/29/24 11/06/24 History tirzepatide (weight loss) 5 mg/0.5 5 mg subcut WEEKLY 10/29/24 10/29/24 History mL subcutaneous pen injector (Zepbound) hydrocodone 5 mg-acetaminophen 325 1 - 2 tablet PO Q6H PRN pain #20 11/06/24 Rx mg tablet tabs Patient hx anesthesia problems: post op nausea/vomiting Family hx anesthesia problems: none Results Review: All pre-operative results and documents have been reviewed as part of the pre-operative evaluation. [facility] Past Medical History Medical History HTN (hypertension) Anemia Leiomyoma Obesity Surgical History Surgical History History of robot-assisted laparoscopic hysterectomy History of delivery SLAP (superior glenoid labrum lesion) History of mandibular surgery History of tubal ligation History of weight loss surgery Family History Family History Other Cancer Heart disease Hypertension Social History Social History Social History: No Smoking status: Never smoker Alcohol intake: current Drinks per week: 4 Living arrangements: with family Spiritual care concerns: No Anes - Eval Final PreProcedure Day of Procedure 11/06/24 14:02 Patient weight: normal Lungs: normal air movement Airway: Mallampati scale class 1 and special considerations (4 upper veneers. ) Neurological: alert and oriented Last oral intake: >/= 8 hours ASA classification: II Emergent: no Anesthetic plan: proceed Anesthesia type and monitoring: general ETT and standard monitoring Results Review: All pre-operative results and documents have been reviewed as part of the pre-operative evaluation. HTN, off GLP1 for 10 days. Informed Consent: The patient's anesthetic plan and its attendant risks and benefits were discussed with the patient/family/POA. Questions were solicited and answers provided to the satisfaction of the patient/family/POA.
--- NOTE | 2024-11-06 14:51 | W.PM.PROC2 ---
Procedure Note - Detailed Date of Procedure 11/06/24 Pre-op Diagnosis Left ovarian cyst. Pelvic pain Post-op Diagnosis Same Procedure Performed Laparoscopic left oophorectomy. Surgeon Woodrow Robertson MD Anesthesia General Findings Surgically absent uterus and bilateral Fallopian tubes. Right ovary unremarkable. Left ovary enlarged with cystic changes. Vermiform appendix, liver and gallbladder all normal-appearing.. Description of Procedure The patient was taken to the operating room where general endotracheal anesthesia was administered. She was prepared and draped in the usual sterile fashion in the dorsal lithotomy position. The bladder was drained with a red rubber catheter. A sponge stick was placed into the vagina. Gloves were changed and attention was turned to the abdomen. An infraumbilical skin incision was made with a scalpel. The abdomen was tented and a 5 millimeter bladeless trocar trocar was advanced under direct laparoscopic visualization. Pneumoperitoneum was administered using carbon dioxide gas. A survey of the pelvis and abdomen yielded the findings noted above. A second 5 mm port was similarly placed in the midline above the symphysis pubis, and a 10 mm port in the LLQ. The ureters were visualized bilaterally. The left ovary was elevated and the infundibulopelvic ligament ligated and transected using Ligasure. The ovary was placed in an endobag and passed off to be sent to pathology. The Cipriano cone was used to pass a single interrupted suture of 0 vicryl to reapproximate the fascia of the LLQ incision. Hemostasis was excellent. The trocars were withdrawn and the gas was allowed to escape. The skin incisions were reapproximated using 4-0 Vicryl in interrupted subcuticular fashion. Dermaflex was applied externally. The vaginal sponge stick was withdrawn. Sponge, lap, needle and instrument counts were correct. The patient was awakened and taken to recovery in stable condition. I was present and scrubbed through the entire procedure. Estimated Blood Loss 5 Drains No Packing No Pathology Yes (Left ovary) Complications None Condition Stable Disposition PACU
[2024-11-06] MEDS: fentaNYL CITRATE INJ (*CRX) 100 MCG/2 ML VIAL 25 MCG IV PUSH ×2 (15:24→15:39)
== END 2024-11-06 17:00 | disposition home or self-care (01) ==
PROVIDERS: PCP Internal Medicine; Visit Provider Obstetrics & Gynecology
PROC: (CPT 49320; principal; 2024-11-06 14:00)
DX: N83.292 Other ovarian cyst, left side (principal); G89.18 Other acute postprocedural pain; I10 Essential (primary) hypertension; D64.9 Anemia, unspecified; Z79.891 Long term (current) use of opiate analgesic; Z79.85 Long-term (current) use of injectable non-insulin antidiabetic drugs; Z98.890 Other specified postprocedural states; Z98.51 Tubal ligation status; Z98.84 Bariatric surgery status; Z80.9 Family history of malignant neoplasm, unspecified; Z82.49 Family history of ischemic heart disease and other diseases of the circulatory system
CPT/HCPCS: 58661; 88305; A9270; J1100; J1200; J1885; J2250; J2405; J2704; J3010; J7030; J7120

== ENCOUNTER 2024-12-02 13:55 | Outpatient (CLI) | payer OTHER, SELFPAY ==
[2024-12-02 14:12] LABS: Basophils Percent Auto 0.2 % (0.2-1.2); Eosinophils Percent Auto 0.7 % (0-4.4); Hematocrit 36.5 % (37.0-47.0); Hemoglobin 12.6 g/dL (12.0-15.0); Immature Granulocyte Absolute 0.01 K/mm3 (0.00-0.031); Immature Granulocyte Percent A 0.2 % (0-0.5); Lymphocytes Absolute Auto 0.83 K/mm3 (0.9-3.2); Lymphocytes Percent Auto 18.2 % (18.3-44.2); Mean Corpuscular HGB Conc 34.5 g/dl (32-36); Mean Corpuscular Hemoglobin 30.9 pg (26-34); Mean Corpuscular Volume 89.5 fl (80-100); Mean Platelet Volume 11.5 fl (7.4-10.4); Monocytes Absolute Auto 0.4 K/mm3 (0.1-0.6); Monocytes Percent Auto 8.4 % (2.6-8.5); Neutrophils Absolute Auto 3.3 K/mm3 (1.3-6.7); Neutrophils Percent Auto 72.3 % (45.5-73.1); Platelet Count Result 164 k/mm3 (150-375); Red Blood Count 4.08 M/mm3 (4.2-5.4); Red Cell Distribution Width 12.4 % (11.5-14.5); White Blood Count 4.6 K/mm3 (4.5-10.0)
--- OUTSIDE RECORDS SUMMARY | 2024-12-02 16:00 | XMS_ITS | Clinical Summary ---
Author Organization [facility] Address [facility] [place] [address] Care Team Providers Care Diesel Service Technician Name Role Phone Maria De Jesus Voss MD Primary Care Provider [phone] Allergies Active Allergy Reactions Criticality Noted Date [...] Department Care Team Description 10/08/2024 11:31 AM COMPENSATION VICE PRESIDENT - 10/08/2024 4:33 PM COMPENSATION VICE PRESIDENT Emergency [facility] [place] [address] Aylin Art NP Abdominal Pain Discharge Disposition: Home or Self Care (Routine Discharge) 10/08/2024 Travel from Last 3 Months Social History Tobacco Use Types Packs/Day Years Used Date Smoking Tobacco: Never Smokeless Tobacco: Never Tobacco Cessation:Counseling Given: Not Answered Comments No Sex and Gender Information Value Date Recorded Sex Assigned at Female 10/08/2024 10:58 AM COMPENSATION VICE PRESIDENT Legal Sex Female 6:59 PM CDT Gender Identity Not on file Sexual Orientation Not on file Last Filed Vital Signs Vital Sign Reading Time Taken Comments Blood Pressure 141/86 10/08/2024 3:41 PM COMPENSATION VICE PRESIDENT Pulse 66 10/08/2024 3:41 PM COMPENSATION VICE PRESIDENT Temperature 36.6 C (97.9 F) 10/08/2024 10:55 AM COMPENSATION VICE PRESIDENT Respiratory Rate 18 10/08/2024 3:41 PM COMPENSATION VICE PRESIDENT Oxygen Saturation 100% 10/08/2024 3:41 PM COMPENSATION VICE PRESIDENT Inhaled Oxygen Concentration - - Weight 76.6 kg (168 lb 14 oz) 10/08/2024 10:55 A M COMPENSATION VICE PRESIDENT Height 165.1 cm (5' 5 ) 10/08/2024 10:55 AM COMPENSATION VICE PRESIDENT Body Mass Index 28.1 10/08/2024 10:55 AM COMPENSATION VICE PRESIDENT Plan of Treatment Health Maintenance Due Date Last Done Comments Colorectal Cancer Screening Colonoscopy (10 Years) 1973 Annual Physical 1976 Hepatitis C 10/19/1991 Hepatitis B Vaccines (1 of 3 - 19+ 3-dose series) 1992 Mammogram Screening 2013 Pneumococcal Vaccine: 50+ Years (1 of 1 - PCV) 10/19/2023 Zoster Vaccines (1 of 2) 10/19/2023 COVID-19 Vaccine (4 - 2023-2 5 season) 2024 09/12/2021, 11/23/2020, 10/30/2020 DTaP, Tdap and Td Vaccines ( 2 - Td or Tdap) 08/03/2028 08/03/2018 Meningococcal B Vaccine Aged Out No l onger eligible based on patient's age to complete this topic Meningococcal Vaccine Aged Out No popeye ora eligible based on patient's age to complete this topic RSV Immunizations Under 20 Months Aged Out No longer eligible b ased on patient's age to complete this topic Procedures Procedure Name Priority Date/Time Associated Diagnosis Comments US PELVIC NON OB COMP TV STAT 10/08/2024 2:30 PM COMPENSATION VICE PRESIDENT CT ABD+PEL W CON STAT 10/08/2024 12:1 4 PM COMPENSATION VICE PRESIDENT LIPASE STAT 10/08/2024 11:41 AM COMPENSATION VICE PRESIDENT COMPREHENSIVE METABOLIC PANEL STAT 10/08/2024 11:41 AM COMPENSATION VICE PRESIDENT CBC W/DIFF AUTOMATED STAT 10/08/2024 11:41 AM COMPENSATION VICE PRESIDENT URINE BACTERIA CULTURE STAT 11:37 AM COMPENSATION VICE PRESIDENT HC URINALYSIS AUTO W/O MICRO STAT 10/08/2024 11:37 AM COMPENSATION VICE PRESIDENT from Last 3 Months Results * US PELVIC NON OB COMP TV (10/08/2024 2:30 PM COMPENSATION VICE PRESIDENT) Anatomical Region Laterality Modality Pelvis Ultrasound 10/08/2024 2:39 PM COMPENSATION VICE PRESIDENT Impressions 10/08/2024 2:55 PM COMPENSATION VICE PRESIDENT =====IMPRESSION:===== 1. No findings of ovarian torsion. 2. Status post hysterectomy. 3. Left ovarian 2.8 cm complex possibly hemorrhagic cyst. 4. Left ovarian small 1.7 cm hypoechoic possible involuting cyst or follicle. Ordered By: AYLIN ART Interpreted By: Florentino Adams MD, 10/08/2024 2:39 PM Narrative 10/08/2024 2:55 PM COMPENSATION VICE PRESIDENT [facility] [address] [place], [place] [address] EXAMINATION: Ultrasound transvaginal pelvis non-OB EXAM DATE/TIME: [...] Procedure Note Florentino Adams MD - 10/08/[address] [address] EXAMINATION: Ultrasound transvaginal pelvis non-OB EXAM DATE/TIME: [...] MD, 10/08/2024 2:39 PM us Aylin Art FRATERNITY ADVISER ULTRASOUND Final Result * CT ABD+PEL W CON (10/08/2024 12:14 PM COMPENSATION VICE PRESIDENT) Anatomical Region Laterality Modality Abdomen Computed Tomogra phy 10/08/2024 12:5 5 PM COMPENSATION VICE PRESIDENT Impressions 10/08/2024 1:15 PM COMPENSATION VICE PRESIDENT =====IMPRESSION:===== 1. Left ovarian cyst measuring 3.6 [...] 10/08/2024 12:55 PM Narrative 10/08/2024 1:15 PM COMPENSATION VICE PRESIDENT [facility] [address] [place], [place] [address] EXAMINATION: CT Abdomen and Pelvis with contrast [...] fracture or destructive bone lesion. Procedure Note [place], Josh Davila MD - 10/08/[address] [address] EXAMINATION: CT Abdomen and Pelvis with contrast [...] By: Josh Oconnor MD, 10/08/2024 12:55 PM us Aylin Art FRATERNITY ADVISER CT Final Result * (ABNORMAL) COMPREHENSIVE METABOLIC PANEL (10/08/2024 11:41 AM COMPENSATION VICE PRESIDENT) GLUCOSE 78 70 - 99 MG/DL 10/08/2024 12:13 PM [facility] BUN 10 7 - 18 MG/DL 10/08/2024 12:13 PM [facility] CREATININE S/P/B 0.81 0.55 - 1.02 MG/DL 10/08/2024 12:13 PM [facility] SODIUM S/P/B 137 136 - 145 MMOL/L 10/08/2024 12:13 PM [facility] POTASSIUM S/P/B 3.5 3.5 - 5.1 MMOL/L 10/08/2024 12:13 PM [facility] CHLORIDE S/P/B 103 97 - 115 MMOL/L 10/08/2024 12:13 PM [facility] CO2 28.0 21 - 32 MMOL/L 10/08/2024 12:13 PM [facility] CALCIUM S/P/B 9.1 8.5 - 10.1 MG/DL 10/08/2024 12:13 PM [facility] BILIRUBIN TOTAL S/P/B 0.5 0.2 - 1.2 MG/DL 10/08/2024 12:13 PM [facility] Comment: THIS ASSAY IS NOT RECOMMENDED FOR PATIENTS UNDERGOING TREATMENT WITH ELTROMBOPAG DUE TO THE POTENTIAL FOR FALSELY ELEVATED RESULTS. TOTAL PROTEIN S/P/B 7.5 6.4 - 8.2 G/DL 10/08/2024 12:13 PM [facility] ALBUMIN S/P/B 4.0 3.4 - 5.0 G/DL 10/08/2024 12:13 PM [facility] AST 18 15 - 37 U/L 10/08/2024 12:13 PM [facility] ALT 24 14 - 55 U/L 10/08/2024 12:13 PM [facility] ALKALINE PHOSPHATASE S/P/B 57 50 - 136 U/L 10/08/2024 12:13 PM [facility] ANION GAP 6.0 2 - 10 MMOL/L 10/08/2024 12:13 PM [facility] BUN CREATININE RATIO 12.4 6 - 26 10/08/2024 12:13 PM [facility] A/G RATIO 1.1 1.0 - 2.0 RATIO 10/08/2024 12:13 PM [facility] GFR ESTIMATE 88(L) >90 ML/MIN/1.7 3 M2 10/08/2024 12:13 PM [facility] Comment: NOTE: eGFR is not calculated for patients <18 years of age or gender unknown. This is an estimated GFR calculation using the new CKD EPI creatinine equation without race and so does not require a correction factor for race. This estimated GFR should not be used for calculating drug doses. 10/08/2024 11:4 1 AM COMPENSATION VICE PRESIDENT us Aylin Art NP LABORATORY Final Result [facility] [address] [place] [address], [place] [phone] * (ABNORMAL) CBC W/DIFF AUTOMATED (10/08/2024 11:41 AM COMPENSATION VICE PRESIDENT) [facility] WBC 8.64 4.5 - 11.0 x10'3/uL 10/08/2024 11:51 AM [facility] RBC 4.93 4.20 - 5.40 x10'6/uL 10/08/2024 11:51 AM [facility] HGB 14.8 12.0 - 16.0 G/DL 10/08/2024 11:51 AM [facility] HCT 43.1 38.0 - 48.0 % 10/08/2024 11:51 AM [facility] MCV 87.4 81.0 - 99.0 FL 10/08/2024 11:51 AM [facility] MCH 30.0 27.0 - 31.0 PG 10/08/2024 11:51 AM [facility] MCHC 34.3 32.0 - 36.0 G/DL 10/08/2024 11:51 AM [facility] RDW 12.1 11.5 - 14.5 % 10/08/2024 11:51 AM [facility] PLT 203 130 - 400 x10'3/uL 10/08/2024 11:51 AM [facility] MPV 11.9 9.3 - 12.2 FL 10/08/2024 11:51 AM [facility] DIFFERENTIAL TYPE AUTOMATED DIFFERENTIAL 10/08/2024 11:51 AM [facility] NEUTROPHILS % 82.9 % 10/08/2024 11:51 AM [facility] LYMPHOCYTES % 9.8 % 10/08/2024 11:51 AM COMPENSATION VICE PRESIDENT [facility] MONOCYTES % 6.6 % 10/08/2024 11:51 AM [facility] EOSINOPHILS 0.2 % 10/08/2024 11:51 AM COMPENSATION VICE PRESIDENT [facility] BASOPHILS 0.2 % 10/08/2024 11:51 AM COMPENSATION VICE PRESIDENT [facility] IMMATURE GRANS % 0.3 % 10/09/19 11:51 AM COMPENSATION VICE PRESIDENT [facility] ABS. NEUTROPHILS 7.15 1.80 - 7.70 x10'3/uL 10/08/2024 11:51 AM [facility] ABS. LYMPHOCYTES 0.85(L) 1.00 - 4.80 x10'3/uL 10/08/2024 11:51 AM COMPENSATION VICE PRESIDENT [facility] ABS. MONOCYTES 0.57 0.24 - 0.86 x10'3/uL 10/08/2024 11:51 AM COMPENSATION VICE PRESIDENT [facility] ABS. EOSINOPHILS 0.02(L) 0.04 - 0.36 x10'3/uL 10/08/2024 11:51 AM [facility] ABS. BASOPHILS 0.02 0.01 - 0.08 x10'3/uL 10/08/2024 11:51 AM COMPENSATION VICE PRESIDENT [facility] ABS. IMMATURE GRANULOCYTES 0.03 0.00 - 0.49 x10'3/uL 10/08/2024 11:51 AM [facility] 10/08/2024 11:4 1 AM COMPENSATION VICE PRESIDENT us Aylin Art NP LABORATORY Final Result [facility] [address] [place] [address], [place] [phone] * LIPASE (10/08/2024 11:41 AM COMPENSATION VICE PRESIDENT) LIPASE 42 13 - 75 UNITS/L 10/08/2024 12:13 PM COMPENSATION VICE PRESIDENT [facility] 10/08/2024 11:4 1 AM COMPENSATION VICE PRESIDENT Aylin Art NP LABORATORY Final Result [facility] [address] [place] [address], [place] [phone] * URINALYSIS (10/08/2024 11:37 AM COMPENSATION VICE PRESIDENT) SPECIMEN TYPE URINE CLEAN CATCH 10/08/2024 11:33 AM [facility] COLOR (U) LIGHT YELLOW 10/08/2024 11:57 AM [facility] TRANSPARENCY CLEAR 10/08/2024 11:57 AM [facility] SPECIFIC GRAVITY (U) 1.003 1.001 - 1.030 10/08/2024 11:57 AM [facility] U PH 6.5 5.0 - 9.0 10/08/2024 11:57 AM [facility] LEUKOCYTES (U) NEGATIVE NEGATIVE 10/08/2024 11:57 AM [facility] NITRITES NEGATIVE NEGATIVE 10/08/2024 11:57 AM [facility] PROTEIN RANDOM (U) NEGATIVE <30 MG/DL 10/08/2024 11:57 AM [facility] GLUCOSE (U) NORMAL NORMAL MG/DL 10/08/2024 11:57 AM [facility] KETONES MG/DL (U) NEGATIVE NEGATIVE MG/DL 10/08/2024 11:57 AM [facility] UROBILINOGEN NORMAL NORMAL MG/DL 10/08/2024 11:57 AM COMPENSATION VICE PRESIDENT [facility] BILIRUBIN (U) NEGATIVE NEGATIVE MG/DL 10/08/2024 11:57 AM COMPENSATION VICE PRESIDENT [facility] BLOOD (U) NEGATIVE NEGATIVE 10/08/2024 11:57 AM COMPENSATION VICE PRESIDENT [facility] URINE SPECIMEN OBTAINED BY CLEAN CATCH PROCEDURE / Unknown 10/08/2024 11:37 AM COMPENSATION VICE PRESIDENT Aylin Atr NP URINE ORDERABLES Final Result Performing Organization Address [facility]/ZIP Co de Phone Number [facility] [address] [place] [id number], [place] [phone] * CULTURE URINE (10/08/2024 11:37 AM COMPENSATION VICE PRESIDENT) SPEC DESCRIPTION URINE CLEAN CATCH 10/08/2024 11:33 AM COMPENSATION VICE PRESIDENT [facility] SPECIAL REQUESTS NO SPECIAL REQUEST 10/08/2024 11:33 AM COMPENSATION VICE PRESIDENT [facility] CULTURE RESULT NO GROWTH 2 DAYS 10/10/2024 7:10 AM COMPENSATION VICE PRESIDENT [facility] URINE SPECIMEN OBTAINED BY CLEAN CATCH PROCEDURE / Unknown 10/08/2024 11:37 AM COMPENSATION VICE PRESIDENT 10/08/2024 11:46 AM COMPENSATION VICE PRESIDENT Aylin Art NP MICROBIOLOGY - GENERAL ORDERAB LES Final Result [facility] [address] [place] [id number], [place] [phone] from Last 3 Months Insurance [facility] Care Teams Diesel Service Technician Relationship Specialty Start Date End Date Maria De Jesus Voss MD [address] [place] [id number] PCP - General INTERNAL MEDICINE 10/08/24
--- OUTSIDE RECORDS SUMMARY | 2024-12-02 16:00 | XMS_ITS | Clinical Summary ---
Author Organization [facility] [address] [place] [address] Care Team Providers Care Gang Ripsaw Operator Name Role Phone Angelique Stuart MD Primary [...] on file Legal Sex Female 6:44 PM HEAVY MOBILE EQUIPMENT OPERATOR Gender Identity Not on file Sexual Orientation Not on file Obstetrics History Last Filed Vital Signs Vital Sign Reading Time Taken Comments Blood Pressure 133/85 06/23/2022 10:20 AM HEAVY MOBILE EQUIPMENT OPERATOR Pulse 91 06/23/2022 10:20 AM HEAVY MOBILE EQUIPMENT OPERATOR Temperature - - Respiratory Rate - - Oxygen Saturation - - Inhaled Oxygen Concentration - - Weight 79.8 kg (176 lb) 06/23/2022 10:20 AM HEAVY MOBILE EQUIPMENT OPERATOR Height 165.1 cm (5' 5 ) 06/23/2022 10:20 AM HEAVY MOBILE EQUIPMENT OPERATOR Body Mass Index 29.29 06/23/2022 10:20 AM HEAVY MOBILE EQUIPMENT OPERATOR Plan of Treatment Health Maintenance Due Date Last Done Comments Breast Cancer Screening-Mammogram 1973 Colon Cancer Screening-Colonoscopy 1973 Depression Screening 1973 Hepatitis C Screening 1973 Hepatitis B Screening 10/19/1991 Regular Well Visit/Exam 18-64 10/19/1991 Zoster Vaccine (1 of 2) 10/19/2023 Covid-19 Vaccine ( season) 2024 09/12/2021, 11/23/2020, 10/30/2020 Influenza Vaccine (Season Ended) 2025 04/29/2022, 05/04/2020, 05/08/2019, Additional history exists DTaP/Tdap/Td Vaccine (2 - Td or Tdap) 08/03/2028 08/03/2018 Pneumococcal vaccine <65 Aged Out No longer eligible based on patient's age to complete this topic Insurance MALIHA ALLEGIANCE Care Teams Gang Ripsaw Operator Relationship Specialty Start Date End Date Angelique Stuart MD PCP - General Family Medicine 06/14/22
--- OUTSIDE RECORDS SUMMARY | 2024-12-02 16:00 | XMS_ITS | Encounter Summary ---
Author Organization [facility] Address [address] [place] [address] Care Team Providers Care Blister Rust Eradicator Name Role Phone Maria De Jesus Voss MD Primary Care Provider [phone] Encounter Details Date Type Department Care Team (Late Contact Info) Description 11/26/2024 Results Follow-Up [facility] at Work [employer] [place] [address] [place] [place] [address] Maria De Jesus Voss MD [address] [place] [address] VITAMIN D 25 HYDROXY Social History Tobacco Use Types Packs/Day Years [...] as of this encounter Miscellaneous Notes * Result Encounter Note - Kristy Sparrow RN - 11/26/2024 1:01 PM CDT Called patient and relayed message regarding lab results. Patient verbalized understanding. documented in this encounter Plan of Treatment Upcoming Encounters Date Type Department Care Team (Late Contact Info) Description 12/20/2024 10:00 AM CDT Office Visit [facility] Oncology and Hematology - [place] [address] [facility] [address] [place] [address] Johnathan Romero MD [address] [facility] [address] [place] [address] documented as of this encounter Visit Diagnoses Not on filedocumented in this encounter Care Teams Blister Rust Eradicator Relationship Specialty Start Date End Date Maria De Jesus Voss MD [address] [place] [phone] PCP - General Internal Medicine 02/06/24 documented as of this encounter
--- OUTSIDE RECORDS SUMMARY | 2024-12-02 16:00 | XMS_ITS | Clinical Summary ---
Author Organization [facility] Care Team Providers Care Regional Vice President Surgical Sales Name Role Phone Unavailable Primary Care Provider Unavailabl e Social History Tobacco Use Types Packs/Day Years Used Date Smoking Tobacco: Never Assessed Comments Unknown Sex and Gender Information Value Date Recorded Sex Assigned at Not on file Legal Sex Female 1:35 PM ADVERTISING COPY WRITER Gender Identity Not on file Sexual Orientation [...] 10/19/2023 Zoster Immunization (1 of 2) 10/19/2023 SARS-COV-2 Immunization (1 - 2023- season) 2024 Influenza Immunization (Seas on Ended) 2025 Respiratory Syncytial Virus (RSV) Immunization (Adult) (1 - 1-dose 75+ series) 2048 Meningococcal Immunization (ACWY) Aged Out No longer eligible based on patient's age to complete this topic Rotavirus Immunization Aged Out No lo nger eligible based on patient's age to complete this topic
--- OUTSIDE RECORDS SUMMARY | 2024-12-02 16:00 | XMS_ITS | Clinical Summary ---
Author Organization [facility] [employer] [place] Address [address] [place] [place] [address] Care Team Providers Care Continuous Drier Helper Name Role Phone Maria De Jesus Voss MD Primary Care Provider [phone] Allergies Active Allergy Reactions Criticality Noted Date Comments Sulfa (Sulfonamide Antibiotics) Rash Low 11/05 Sulfasalazine Rash Low 06/24/2013 Medications fluticasone propionate (FLONASE) 50 mcg/spray [place], Suspension nasal inhaler Administer 2 Sprays in each nostril daily. 16 Gram 2 06/13/20 24 Active multivitamin with minerals (HAIR,SKIN AND NAILS ORAL) Take by mouth. Act agapito tirzepatide, weight loss, (Zepbound) 5 mg/0.5 mL Pen InjectorIndicati ons:Obesity, Class I, BMI 30-34.9 Inject 5 mg by subcutaneous injection every 7 days. 6 mL 1 09/27/19 25 Active lisinopriL (PRINIVIL) 20 mg tabletIndication s:Benign hypertension Take 1 Tablet (20 mg) by mouth daily. 90 Tablet 09/27/19 25 Active sertraline (ZOLOFT) 50 mg tabletIndication s:Situational depression Take 1 Tablet (50 mg) by mouth daily. 90 Tablet 09/27/19 25 Active ergocalciferol (Vitamin D2) 50,000 unit capsuleIndicatio ns:Low vitamin D level Take 1 Capsule (50,000 Units) by mouth every 7 days for 8 doses. 8 Capsule 09/23/19 25 025 Active Problems Problem Noted Date Diagnosed Date Lymphopenia 04/04/2024 Blood donor, plasma 04/04/2024 Benign hypertension 08/08/2023 Macrocytic anemia 03/28/2019 Personal history of ovarian cyst 03/26/2019 Situational depression 02/09/2018 Encounters Date Type Department Care Team Description 11/26/2024 Results Follow-Up [facility] at [place] [address] [place] [address] Maria De Jesus Voss MD VITAMIN D 25 HYDROXY 11/25/2024 1:00 PM CDT Procedure visit [facility] at [facility] [address] [place] [phone] Low vitamin D level 11/19/2024 External Device Data STL ABSTRACTION Provider, Abstract 10/31/2024 Telephone [facility] at [place] [address] [place] [phone] Maria De Jesus Voss MD Upcoming Surgery 10/23/2024 External Device Data STL ABSTRACTION Provider, Abstract 10/12/2024 External Device Data STL ABSTRACTION Provider, Abstract 10/11/2024 External Device Data STL ABSTRACTION Provider, Abstract 10/08/2024 External Device Data STL ABSTRACTION Provider, Abstract 09/27/2024 1:00 PM CELL CLEANER Office Visit [facility] at [place] [address] [place] [phone] Maria De Jesus Voss MD Obesity, Class I, BMI 30-34.9 (Primary Dx); Low vitamin D level; Benign hypertension; Situational depression 09/24/2024 External Device Data STL ABSTRACTION Provider, Abstract 09/23/2024 Results Follow-Up [facility] at [facility] [address] [place] [phone] Maria De Jesus Voss MD VITAMIN D 25 HYDROXY, TSH, LIPID PANEL, Additional followed-up results: 2 09/20/2024 8:00 AM CELL CLEANER Office Visit [place] [address] [place] [phone] Low vitamin D level; Screening for condition; Benign hypertension 09/20/[address] [place] [address] at Work [employer] [place] [address] [place] [address] Maria De Jesus Voss MD Obesity, Class I, BMI 30-34.9 from Last 3 Months Immunizations Immunization Administration [...] Comments Blood Pressure 124/84 09/27/2024 1:05 PM CELL CLEANER Pulse 64 09/27/2024 1:05 PM CELL CLEANER Temperature 37.1 C (98.7 F) 08/28/2024 12:58 PM CELL CLEANER Respiratory Rate 18 09/27/2024 1:05 PM CELL CLEANER Oxygen Saturation 96% 09/27/2024 1:05 PM CELL CLEANER Inhaled Oxygen Concentration - - Weight 70.6 kg (155 lb 9.6 oz) 11/25/2024 1:02 P M CDT Height 165.1 cm (5' 5 ) 09/27/2024 1:05 PM CELL CLEANER Body Mass Index 25.89 09/27/2024 1:05 PM CELL CLEANER Plan of Treatment Upcoming Encounters Date Type Department Care Team (Late st Contact Info) Description 12/20/2024 10:00 AM CDT Office Visit [facility] Oncology and Hematology - [place] [address] [facility] [address] [place] [address] Johnathan Romero MD [address] [facility] [address] [place] [address] Health Maintenance Due Date Last Done Comments HEPATITIS B VACCINES (1 of 3 - 19+ 3-dose series) 1992 COLORECTAL SCREENING 2018 Flex Sig/CT Colonography Q 5 years 2018 FIT/FOBT Q 1 year 04/09/2020 04/09/2019 ZOSTER VACCINE (1 of 2) 10/19/2023 Preventative Visit- Commercial 08/07/2024 02/06/2024 BREAST CANCER SCREENING 12/26/2024 12/27/19 24, 03/10/2021, 03/10/2021 (Previously completed), Additional history exists Pre-Diabetes and Diabetes Screening 02/17/2025 02/17/2022 Colorectal Cancer Screening 03/15/2026 FIT-DNA Q 3 years 03/15/2026 03/15/2023 DTAP/TDAP/TD VACCINES (2 - T d or Tdap) 08/03/2028 08/03/2018 INFLUENZA VACCINE Completed 05/14/2024, , 05/04/2020, Additional history exists Procedures Procedure Name Priority Date/Time Associated Diagnosis Comments VITAMIN D 25 HYDROXY Routine 11/25/2024 1:00 PM CDT Low vitamin D level COMPREHENSIVE METABOLIC PANEL Routine 09/20/2024 7:58 AM CELL CLEANER Screening for condition CBC WITH DIFFERENTIAL Routine 09/20/2024 7:58 AM CELL CLEANER Benign hypertension Screening for condition LIPID PANEL Routine 09/20/2024 7:58 AM CELL CLEANER Screening for condition TSH Routine 09/20/2024 7:58 AM CELL CLEANER Screening for condition VITAMIN D 25 HYDROXY Routine 09/20/2024 7:58 AM CELL CLEANER Low vitamin D level MAMMO 3D ROSIE [...] Recently Relevant to Health Maintenance Results * VITAMIN D 25 HYDROXY (11/25/2024 1:00 PM CDT) Only the most recent of2 resultswithin the time period is included. VITAMIN D, 25 OH, TOTAL 77 30 - 100 ng/mL [facility] Comment: Vitamin D Status 25-OH Vitamin D: Deficiency: <20 ng/mL Insufficiency: 20 - 29 ng/mL Optimal: > or = 30 ng/mL For 25-OH Vitamin D testing on patients on D2-supplementation and patients for whom quantitation of D2 and D3 fractions is required, the [facility] 25-OH VIT D, (D2,D3), LC/MS/MS is recommended: order code 52559 (patients >2yrs). See Note 1 Note 1 For additional information, please refer to http://education.United Maps/faq/TAZ039 (This link is being provided for informational/ educational purposes only.) Test Performed at: [facility] [address] [place] [address] Neal Cordero MD Blood 11/25/2024 1:00 PM CDT 11/26/2024 4:39 AM CDT us Maria De Jesus Voss MD CHEMISTRY ORDERABLES Final Res ult [facility] [phone] [facility] [address] [place] [address] * (ABNORMAL) CBC WITH DIFFERENTIAL (09/20/2024 7:58 AM CELL CLEANER) WBC 4.0 3.8 - 10.8 Thousand/u L [...] [facility] Comment: Test Performed at: [facility] [address] [place] [address] Neal Cordero MD Blood 09/20/2024 7:58 AM CELL CLEANER 09/21/2024 8:04 AM CELL CLEANER us Maria De Jesus Voss MD HEMATOLOGY ORDERABLES Final Re sult Performing Organization Address [facility] Co de Phone Number [facility] [phone] [facility] [address] * TSH (09/20/2024 7:58 AM CELL CLEANER) TSH 0.82 mIU/L [facility] Comment: Reference Range > or = 20 Years 0.40-4.50 Ranges First trimester 0.26-2.66 Second trimester 0.55-2.73 Third trimester 0.43-2.91 Test Performed at: [facility] [address] [place] [address] Neal Cordero MD Blood 09/20/2024 7:58 AM CELL CLEANER 09/21/2024 8:04 AM CELL CLEANER us Maria De Jesus Voss MD CHEMISTRY ORDERABLES Final Res ult [facility] [phone] [facility] [address] [place] [address] * (ABNORMAL) LIPID PANEL (09/20/2024 7:58 AM CELL CLEANER) CHOLESTEROL 184 <200 mg/dL [facility] [...] LDL-C. Leo SS et al. EVERETT. 2013;310(19): 0499-3862 (http://education.United Maps/faq/JWN361) CHOL/HDL RATIO 2.9 <5.0 (calc) [facility] NON-HDL CHOLESTEROL 121 <130 mg/dL (calc) [facility] Comment: For patients with diabetes plus 1 major ASCVD risk factor, treating to a non-HDL-C goal of <100 mg/dL (LDL-C of <70 mg/dL) is considered a therapeutic option. Test Performed at: [facility] [address] [place] [address] Neal Cordero MD Blood 09/20/2024 7:58 AM CELL CLEANER 09/21/2024 8:04 AM CELL CLEANER us Maria De Jesus Voss MD CHEMISTRY ORDERABLES Final Res ult [facility] [phone] [facility] [address] [place] [address] * COMPREHENSIVE METABOLIC PANEL (09/20/2024 7:58 AM CELL CLEANER) GLUCOSE 75 65 - 99 mg/dL [facility] Comment: Fasting reference interval BUN 10 [...] [facility] Comment: Test Performed at: [facility] [address] [place] [address] Neal Cordero MD Blood 09/20/2024 7:58 AM CELL CLEANER 09/21/2024 8:04 AM CELL CLEANER us Maria De Jesus Voss MD CHEMISTRY ORDERABLES Final Res ult [facility] [phone] [facility] [address] [place] [address] * MAMMO 3D ROSIE DIAGNOSTIC BILAT W OR WO CAD (12/27/2023 7:21 AM CDT) Anatomical Region Laterality Modality Breast Bilateral Mammography us Frida FIGUEROA MAMMO ORDERABLES Edited Resu lt - Final * COLON CANCER SCREEN, STOOL DNA (03/15/2023 6:05 PM CDT) COLOGUARD RESULT Negative Negative [facility] Comment: NEGATIVE TEST RESULT. A negative Cologuard [...] Ferrer et al, N Engl J Med 2014;370(14):9634-4406) The normal value (reference range) for this assay is negative. COLOGUARD RE-SCREENING RECOMMENDATION: Periodic colorectal cancer screening is an important part of preventive healthcare for asymptomatic individuals at average risk for colorectal cancer. Following a negative Cologuard result, the [place] Cancer Society and U.S. Multi-Society Task Force screening guidelines recommend a Cologuard re-screening interval of 3 years. References: [place] Cancer Society Guideline for Colorectal Cancer Screening: https://www.cancer.org/cancer/oxkrw-vrlbvq-nuaqoq/hoxhosvav-cejecguld-yegdchf/ac s-rec ommendations.html.; Rommel DK, Eugene CR, Ildefonso EcheverriaK, Colorectal Cancer Screening: Recommendations for Physicians and Patients from the U.S. Multi-Society Task Force on Colorectal Cancer Screening , Am J Gastroenterology 2017; 112:0242-5044. TEST DESCRIPTION: Composite algorithmic analysis of stool [...] (Oniel Santos al, N Engl J Med 2014;370(14):1863-2676.) Cologuard may produce a false negative or false positive result (no colorectal cancer or precancerous polyp present at colonoscopy follow up). A negative Cologuard test result does not guarantee the absence of CRC or advanced adenoma (pre-cancer). The current Cologuard screening interval is every 3 years. ([place] Cancer Society and U.S. Multi-Society Task Force). Cologuard performance data in a 10,000 patient pivotal study using colonoscopy as the reference method can be accessed at the following location: www.TrustRadius/results. Additional description of the Cologuard test process, warnings and precautions can be found at www.Restopolitan.CrossLoop. Stool STOOL SPECIMEN / Unknown 03/15/2023 6:05 PM CDT 03/18/2023 2:32 AM CDT Fr[facility] FIGUEROA BODY FLUIDS AND STOOLS Final Result [facility] CLIA # [id number] [address] , [address] [place] [address] * HEMOGLOBIN A1C (02/17/2022 2:38 PM CDT) [...] diagnosis of diabetes in children. According to [place] Diabetes Association (ADA) guidelines, hemoglobin A1c <7.0% represents optimal control in non- diabetic patients. Different metrics may apply to specific patient populations. Standards of Medical Care in Diabetes(ADA). ESTIMATED AVERAGE GLUCOSE (MG/DL) 97 mg/dL [facility] ESTIMATED AVERAGE GLUCOSE (MMOL/L) 5.4 mmol/L [facility] Comment: Test Performed at: [facility] [address] [place] [address] Gary Hood D.O., MPH Blood 02/17/2022 2:38 PM CDT 02/18/2022 4:29 AM CDT us Leah Heller ART FRAMING MANAGER CHEMISTRY ORDERABLES F inal Result Performing Organization Address [facility]/ZIP Co de Phone Number [facility] [phone] [facility] [employer] [facility] [address] [place] [address] * POC OCCULT BLOOD UP TO 3 CARDS (04/09/2019 8:34 AM CDT) OCCULT BLOOD 1 CARD POC Negative Negative [facility] [place] OCCULT BLOOD 2 CARD POC Negative Negative [facility] [place] O[place]ULT BLOOD 3 CARD POC Negative Negative [facility] [place] INTERNAL KIT QC Pass Pass [facility] [place] POC [id number] 1L [facility] [place] EXP[place] DATE POC 10/2019 [facility] [place] DEVELOPER [place] NUMBER POC [id number] [facility] [place] DEV[place] EXP[place]ATION DATE POC 01/2022 [facility] [place] Stool STOOL SPECIMEN / Unknown 04/09/2019 8:34 AM CDT us Sonia Gibbs ENGINE HOSTLER POINT OF CARE TESTING F inal Result Performing Organization Address City/[facility]/ZIP Co de Phone Number [facility] CLIA# [id number] [address] [place] [address] from Last 3 Months or Most Recently Relevant to Health Maintenance Insurance [employer] ALLEGIANCE OPEN ACCESS Advance Directives For more information, please contact: [phone] * Full Code (Latest Code Status on File) Date Activated Date Inactivated Comments 07/10/2019 11:43 AM 07/10/2019 4:58 PM * Full Code Date Activated Date Inactivated Comments 07/10/2019 10:56 AM 07/10/2019 11:43 AM Care Teams Continuous Drier Helper Relationship Specialty Start Date End Date Maria De Jesus Voss MD [address] [place] [address] PCP - General Internal Medicine 02/06/24
--- OUTSIDE RECORDS SUMMARY | 2024-12-02 16:00 | XMS_ITS | Referral Summary ---
Author Organization [facility] [address] Address [address] [place] [phone] Care Team Providers Care City Carrier Assistant Name Role Phone Angelique Stuart MD [...] on file Legal Sex Female 6:44 PM CYLINDER MACHINE OPERATOR PULP DRIER Gender Identity Not on file Sexual Orientation Not on file Last Filed Vital Signs Vital Sign Reading Time Taken Comments Blood Pressure 133/85 06/23/2022 10:20 AM CYLINDER MACHINE OPERATOR PULP DRIER Pulse 91 06/23/2022 10:20 AM CYLINDER MACHINE OPERATOR PULP DRIER Temperature - - Respiratory Rate - - Oxygen Saturation - - Inhaled Oxygen Concentration - - Weight 79.8 kg (176 lb) 06/23/2022 10:20 AM CYLINDER MACHINE OPERATOR PULP DRIER Height 165.1 cm (5' 5 ) 06/23/2022 10:20 AM CYLINDER MACHINE OPERATOR PULP DRIER Body Mass Index 29.29 06/23/2022 10:20 AM CYLINDER MACHINE OPERATOR PULP DRIER Plan of Treatment Not on file Insurance [employer] ALLEGIANCE Care Teams City Carrier Assistant Relationship Specialty Start Date End Date Angelique Stuart MD PCP - General Family Medicine 06/14/22
--- OUTSIDE RECORDS SUMMARY | 2024-12-02 16:00 | XMS_ITS | Clinical Summary ---
Author Organization [facility] Address [address] [place] [address] Care Team Providers Care Real Estate Teacher Name Role Phone Unavailable Primary Care Provider Unavailabl e Source Comments [facility],non-owned Affiliates and Associated Physician Practices is amultiple site organization consisting of ambulatory clinics and hospital sitesin [place], [place], [place] and [place]. This disclosure is being madepursuant to the Care Everywhere program and may not contain all information available regarding this patient. Last updated 18.[facility] Screwpulp Allergies Active Allergy Reactions Criticality Noted Date Comments Sulfa Drugs Rash Low 06/24/2013 Medications * Be aware that medications may not be up to date on this document. Alwaysverify current medications with the patient. lisinopril (PRINIVIL; ZESTRIL) 10 MG tablet Take [...] at Not on file Legal Sex Female 2:29 PM SKIVER BOX TOE Gender Identity Not on file Sexual Orientation [...] COVID-19 VACCINE (1 - 2023- season) 2024 DEPRESSION SCREENING 08/07/2024 INFLUENZA VACCINE (Season Ended) 2025 HIB VACCINE Aged Out No longer eligi [...] PM CDT Narrative Resulting Agency Comment [facility] [address] [phone] us Amanda Boles MATERIAL MIXER[facility] - CHEMISTRY CHARO THAKKAR Final Result [facility] ACCOUNT BILL [address] [place] [address] from Last 3 Months or Most Recently Relevant to Health Maintenance Insurance [facility] Advance Directives * Full Code (Latest Code Status on File) Date Activated Date Inactivated Comments 02/19/2014 11:47 AM 02/21/2014 2:39 PM
== END 2024-12-02 13:56 | disposition home or self-care (01) ==
LOC: ANHLAB 13:56
PROVIDERS: PCP Internal Medicine; Visit Provider Internal Medicine Hematology & Oncology
DX: D72.810 Lymphocytopenia (principal)
CPT/HCPCS: 36415; 85025

== ENCOUNTER 2025-02-21 14:45 | Outpatient (CLI) | payer OTHER, SELFPAY ==
--- NOTE | ~2025-02-21 | MM_ITS ---
EXAMINATION: MM screening sindhu BI w mikel HISTORY: Screening TECHNIQUE: Craniocaudal and mediolateral oblique 3-D tomosynthesis images were obtained and synthetic 2-D images were generated. CAD analysis was submitted and interpreted. COMPARISON: Comparison to multiple prior studies sequentially, with oldest reviewed study dated 02/21. BREAST PARENCHYMAL COMPOSITION: Not dense: There are scattered areas of fibroglandular density. FINDINGS: There is no evidence of suspicious mass, calcification, or architectural distortion to sugg est malignancy in either breast. There has been no suspicious interval change. IMPRESSION: 1. No mammographic evidence of malignancy. 2. Recommend routine screening mammography in one year. BI-RADS Category 1: Negative Reviewed, dictated and finalized at location B.
--- OUTSIDE RECORDS SUMMARY | 2025-02-21 14:48 | XMS_ITS | Referral Summary ---
Author Organization [facility] [place] [address] [place] Address [address] [place] [phone] Care Team Providers Care Perishable Fruit Inspector Name Role Phone Angelique Stuart MD Primary [...] on file Legal Sex Female 6:44 PM SECURITY PROFESSIONAL Gender Identity Not on file Sexual Orientation Not on file Last Filed Vital Signs Vital Sign Reading Time Taken Comments Blood Pressure 133/85 06/23/2022 10:20 AM SECURITY PROFESSIONAL Pulse 91 06/23/2022 10:20 AM SECURITY PROFESSIONAL Temperature - - Respiratory Rate - - Oxygen Saturation - - Inhaled Oxygen Concentration - - Weight 79.8 kg (176 lb) 06/23/2022 10:20 AM SECURITY PROFESSIONAL Height 165.1 cm (5' 5) 06/23/2022 10:20 AM SECURITY PROFESSIONAL Body Mass Index 29.29 06/23/2022 10:20 AM SECURITY PROFESSIONAL Plan of Treatment Not on file Insurance [employer] Care Teams Perishable Fruit Inspector Relationship Specialty Start Date End Date Angelique Stuart MD PCP - General Family Medicine 06/14/22
--- OUTSIDE RECORDS SUMMARY | 2025-02-21 14:48 | XMS_ITS | Encounter Summary ---
Author Organization [facility] Address [address] [place] [address] Care Team Providers Care Metal Fabricator Welder Name Role Phone Maria De Jesus Voss MD Primary Care Provider [phone] Encounter Details Date Type Department Care Team (Late st Contact Info) Description 02/19/2025 External Device Data STL ABSTRACTION Provider, Abstract NO ADDRESS ON FILE Social History Tobacco Use Types Packs/Day Years [...] Care Team (Late st Contact Info) Description 12/26/2025 8:30 AM CDT Office Visit [facility] Oncology and Hematology - [place] [address] [facility] [address] [place] [address] Johnathan Romero MD [address] [facility] [address] [place] [address] documented as of this encounter Visit Diagnoses Not on filedocumented in this encounter Care Teams Metal Fabricator Welder Relationship Specialty Start Date End Date Maria De Jesus Voss MD [address] [place] [address] PCP - General Internal Medicine 02/06/24 documented as of this encounter
--- OUTSIDE RECORDS SUMMARY | 2025-02-21 14:48 | XMS_ITS | Clinical Summary ---
[facility] Organization [facility] Address [facility] [place] [address] Care Team Providers Care Equipment Tech Name Role Phone Maria De Jesus Voss MD Primary Care Provider [phone] Allergies Active Allergy Reactions Criticality Noted Date [...] hours as needed. 20 tablet 5 Active Social History Tobacco Use Types Packs/Day Years Used Date Smoking Tobacco: Never Smokeless Tobacco: Never Tobacco Cessation:Counseling Given: Not Answered Comments No Sex and Gender Information Value Date Recorded Sex Assigned at Female 10/08/2024 10:58 AM HEALTHCARE CUSTOMER SERVICE Legal Sex Female 6:59 PM CDT Gender Identity Not on file Sexual Orientation Not on file Last Filed Vital Signs Vital Sign Reading Time Taken Comments Blood Pressure 141/86 10/08/2024 3:41 PM HEALTHCARE CUSTOMER SERVICE Pulse 66 10/08/2024 3:41 PM HEALTHCARE CUSTOMER SERVICE Temperature 36.6 C (97.9 F) 10/08/2024 10:55 AM HEALTHCARE CUSTOMER SERVICE Respiratory Rate 18 10/08/2024 3:41 PM HEALTHCARE CUSTOMER SERVICE Oxygen Saturation 100% 10/08/2024 3:41 PM HEALTHCARE CUSTOMER SERVICE Inhaled Oxygen Concentration - - Weight 76.6 kg (168 lb 14 oz) 10/08/2024 10:55 A M HEALTHCARE CUSTOMER SERVICE Height 165.1 cm (5' 5) 10/08/2024 10:55 AM HEALTHCARE CUSTOMER SERVICE Body Mass Index 28.1 10/08/2024 10:55 AM HEALTHCARE CUSTOMER SERVICE Plan of Treatment Health Maintenance Due Date [...] patient's age to complete this topic Insurance [facility] Care Teams Equipment Tech Relationship Specialty Start Date End Date Maria De Jesus Voss MD [address] [place] [phone] PCP - General INTERNAL MEDICINE 10/08/24
--- OUTSIDE RECORDS SUMMARY | 2025-02-21 14:48 | XMS_ITS | Clinical Summary ---
Author Organization [facility] [address] [address] Care Team Providers Care Quality Control Technician Name Role Phone Angelique Stuart MD Primary [...] on file Legal Sex Female 6:44 PM BLENDING MACHINE FEEDER Gender Identity Not on file Sexual Orientation Not on file Obstetrics History Last Filed Vital Signs Vital Sign Reading Time Taken Comments Blood Pressure 133/85 06/23/2022 10:20 AM BLENDING MACHINE FEEDER Pulse 91 06/23/2022 10:20 AM BLENDING MACHINE FEEDER Temperature - - Respiratory Rate - - Oxygen Saturation - - Inhaled Oxygen Concentration - - Weight 79.8 kg (176 lb) 06/23/2022 10:20 AM BLENDING MACHINE FEEDER Height 165.1 cm (5' 5) 06/23/2022 10:20 AM BLENDING MACHINE FEEDER Body Mass Index 29.29 06/23/2022 10:20 AM BLENDING MACHINE FEEDER Plan of Treatment Health Maintenance Due Date Last Done Comments Breast Cancer Screening-Mammogram 1973 Colon Cancer Screening-Colonoscopy 1973 Depression Screening 1973 Hepatitis C Screening 1973 Hepatitis B Screening 10/19/1991 Regular Well Visit/Exam 18-64 10/19/1991 Zoster Vaccine (1 of 2) 10/19/2023 Covid-19 Vaccine ( season) 2024 09/12/2021, 11/23/2020, 10/30/2020 Influenza Vaccine (#1) 2025 , 05/04/2020, 05/08/2019, Additional history exists DTaP/Tdap/Td Vaccine (2 - Td or Tdap) 08/03/2028 08/03/2018 Pneumococcal vaccine <65 Aged Out No longer eligible based on patient's age to complete this topic Insurance [employer] Care Teams Quality Control Technician Relationship Specialty Start Date End Date Angelique Stuart MD PCP - General Family Medicine 06/14/22
--- OUTSIDE RECORDS SUMMARY | 2025-02-21 14:48 | XMS_ITS | Clinical Summary ---
Author Organization [facility] Care Team Providers Care Ordained Minister Name Role Phone Unavailable Primary Care Provider Unavailabl e Social History Tobacco Use Types Packs/Day Years Used Date Smoking Tobacco: Never Assessed Comments Unknown Sex and Gender Information Value Date Recorded Sex Assigned at Not on file Legal Sex Female 1:35 PM CATALYST RECOVERY OPERATOR Gender Identity Not on file Sexual Orientation Not on file Plan of Treatment Health Maintenance Due Date Last Done Comments Hepatitis C Virus (HCV) Screening 1973 TdaP Immunization 1973 Hepatitis B Immunization (1 of 3 - 19+ 3-dose series) 1992 Pap Smear 1994 Cervical Cancer Screening (CCS) 10/19/2003 HPV/Cotest 10/19/2003 Cologuard 2018 Colonoscopy 2018 Colorectal Cancer Screening 2018 Immunochemical Fecal Occult Blood 2018 Pneumococcal Immunization (5 0+ years) (1 of 1 - PCV) 10/19/2023 Zoster Immunization (1 of 2) 10/19/2023 SARS-COV-2 Immunization ( - 2023-25 season) 2024 Influenza Immunization (#1) 2025 Respiratory Syncytial Virus (RSV) Immunization (Adult) (1 - 1-dose 75+ series) 2048 Human Papillomavirus (HPV) Immunization Aged Out No longer eligible b ased on patient's age to complete this topic Meningococcal Immunization (ACWY) Aged Out No longer eligible based on patient's age to complete this topic Rotavirus Immunization Aged Out No lo nger eligible based on patient's age to complete this topic
--- OUTSIDE RECORDS SUMMARY | 2025-02-21 14:48 | XMS_ITS | Clinical Summary ---
Author Organization [facility] [employer] Address [id number] [place] [id number] Care Team Providers Care Hvac Installer Name Role Phone Maria De Jesus Voss MD Primary Care Provider [phone] Allergies Active Allergy Reactions Criticality Noted Date Comments Sulfa (Sulfonamide Antibiotics) Rash Low 11/05 Sulfasalazine Rash Low 06/24/2013 Medications multivitamin with minerals (HAIR,SKIN AND NAILS ORAL) Take by mouth. Act agapito tirzepatide, weight loss, (Zepbound) 5 mg/0.5 mL Pen InjectorIndicati ons:Obesity, Class I, BMI 30-34.9 Inject 0.5 mL (5 mg) by subcutaneous injection every 7 days. 6 mL 1 5 Active fluticasone propionate (FLONASE) 50 mcg/spray Street, Suspension nasal inhaler Administer 2 Sprays in each nostril daily. 16 Gram 2 5 Active lisinopriL (PRINIVIL) 20 mg tabletIndication [...] Encounters Date Type Department Care Team Description 02/19/2025 External Device Data [facility] ABSTRACTION Provider, Abstract 02/18/2025 External Device Data [facility] ABSTRACTION Provider, Abstract 01/21/2025 External Device Data [facility] ABSTRACTION Provider, Abstract 01/17/2025 1:00 PM CDT Procedure visit [facility] [place] [address] [place] [phone] Issue of repeat prescription (Primary Dx) 01/16/2025 Refill [facility] [place] [address] [place] [phone] Frida Castillo, HENRY Benign hypertension; Situational depression 01/09/2025 Telephone [facility] [place] [address] [place] [address] Maria De Jesus Voss MD Medication Refill 12/26/2024 External Device Data [facility] ABSTRACTION Provider, Abstract 12/25/2024 External Device Data [facility] ABSTRACTION Provider, Abstract 12/24/2024 External Device Data [facility] ABSTRACTION Provider, Abstract 12/20/2024 10:00 AM CDT Office Visit [facility] On[facility] [address] [place] [phone] Johnathan Romero MD Lymphocytopenia (Primary Dx) 12/03/2024 Orders Only [facility] On[facility] Hematology [facility] [address] [place] [phone] Johnathan Romero MD 11/26/2024 Results Follow-Up [facility] [place] [address] [place] [phone] Maria De Jesus Voss MD VITAMIN D 25 HYDROXY 11/25/2024 1:00 PM CDT Procedure visit [facility] [place] [address] [place] [address] Low vitamin D level from Last 3 Months Immunizations Immunization Administration [...] Sign Reading Time Taken Comments Blood Pressure 120/81 12/20/2024 9:47 AM CDT Pulse 63 12/20/2024 9:47 AM CDT Temperature 36.2 C (97.2 F) 12/20/2024 9:47 AM CDT Respiratory Rate 15 12/20/2024 9:47 AM CDT Oxygen Saturation 97% 12/20/2024 9:47 AM CDT Inhaled Oxygen Concentration - - Weight 71.5 kg (157 lb 9.6 oz) 12/20/2024 9:47 A M CDT Height 165.1 cm (5' 5) 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 [address] [facility] [address] [place] [address] Johnathan Romero MD [address] [facility] [address] [place] [address] Health Maintenance Due Date Last Done Comments HEPATITIS B VACCINES (1 of 3 - 19+ 3-dose series) 1992 COLORECTAL SCREENING 2018 Flex Sig/CT Colonography Q 5 years 2018 FIT/FOBT Q 1 year 04/09/2020 04/09/2019 ZOSTER VACCINE (1 of 2) 10/19/2023 BREAST CANCER SCREENING 12/26/2024 12/27/19 24, 03/10/2021, 03/10/2021 (Previously completed), Additional history exists Pre-Diabetes and Diabetes Screening 02/17/2025 02/17/2022 INFLUENZA VACCINE (#1) 2025 , 04/29/2022, 05/04/2020, Additional history exists Colorectal Cancer Screening 03/15/2026 FIT-DNA Q 3 years 03/15/2026 03/15/2023 DTAP/TDAP/TD VACCINES (2 - T d or Tdap) 08/03/2028 08/03/2018 Procedures Procedure Name Priority Date/Time Associated Diagnosis Comments CBC MIXED CELL DIFFERENTIAL Routine 12/02/2024 12:24 PM CDT VITAMIN D 25 HYDROXY Routine 11/25/2024 1:00 PM CDT Low vitamin D level MAMMO 3D ROSIE [...] Recently Relevant to Health Maintenance Results * CBC MIXED CELL DIFFERENTIAL (12/02/2024 12:24 PM CDT) Blood us Johnathan Romero MD HEMATOLOGY ORDERABLES Final Res ult * VITAMIN D 25 HYDROXY (11/25/2024 1:00 PM CDT) VITAMIN D, 25 OH, TOTAL 77 30 - 100 ng/mL [facility] Comment: Vitamin D Status 25-OH Vitamin D: Deficiency: <20 ng/mL Insufficiency: 20 - 29 ng/mL Optimal: > or = 30 ng/mL For 25-OH Vitamin D testing on patients on D2-supplementation and patients for whom quantitation of D2 and D3 fractions is required, the QuestAssureD(TM) 25-OH VIT D, (D2,D3), LC/MS/MS is recommended: order code 15523 (patients >2yrs). See Note 1 Note 1 For additional information, please refer to http://education.[employer]/faq/JWQ447 (This link is being provided for informational/ educational purposes only.) Test Performed at: [facility] [address] [place] [address] Neal Cordero MD Blood 11/25/2024 1:00 PM CDT 11/26/2024 4:39 AM CDT us Maria De Jesus Voss MD CHEMISTRY ORDERABLES Final Res ult [facility] [phone] [facility] [address] [facility] [facility] [place] [address] * MAMMO 3D ROSIE DIAGNOSTIC BILAT W OR WO CAD (12/27/2023 7:21 AM CDT) Anatomical Region Laterality Modality Breast Bilateral Mammography Frida Castillo ANP MAMMO ORDERABLES Edited Resu lt - Final * COLON CANCER SCREEN, STOOL DNA (03/15/2023 6:05 PM CDT) COLOGUARD RESULT Negative Negative [facility] Comment: NEGATIVE TEST RESULT. A negative Cologuard [...] Ferrer et al, N Engl J Med 2014;370(14):4150-6892) The normal value (reference range) for this assay is negative. COLOGUARD RE-SCREENING RECOMMENDATION: Periodic colorectal cancer screening is an important part of preventive healthcare for asymptomatic individuals at average risk for colorectal cancer. Following a negative Cologuard result, the [place] Cancer Society and U.S. Multi-Society Task Force screening guidelines recommend a Cologuard re-screening interval of 3 years. References: [place] [employer] Society Guideline for Colorectal Cancer Screening: https://www.cancer.org/cancer/anfod-wufhhp-qtppdt/empjglagz-dyvmkqykh-habyyal/ac s-rec ommendations.html.; Rommel DK, Eugene CR, Ildefonso EcheverriaK, Colorectal Cancer Screening: Recommendations for Physicians and Patients from the U.S. Multi-Society Task Force on Colorectal Cancer Screening , Am J Gastroenterology 2017; 112:2986-0406. TEST DESCRIPTION: Composite algorithmic analysis of stool [...] screened with both Cologuard and colonoscopy. (Oniel Cervantes. et al, N Engl J Med 2014;370(14):2808-0905.) Cologuard may produce a false negative or false positive result (no colorectal cancer or precancerous polyp present at colonoscopy follow up). A negative Cologuard test result does not guarantee the absence of CRC or advanced adenoma (pre-cancer). The current Cologuard screening interval is every 3 years. ([place] Cancer Society and U.S. Multi-Society Task Force). Cologuard performance data in a 10,000 patient pivotal study using colonoscopy as the reference method can be accessed at the following location: www.[employer]/results. Additional description of the Cologuard test process, warnings and precautions can be found at www.Opendiscoguard.com. Stool STOOL SPECIMEN / Unknown 03/15/2023 6:05 PM CDT 03/18/2023 2:32 AM CDT us Frida Castillo ANP BODY FLUIDS AND STOOLS Final Result [facility] CLIA # [id number] [address] , [address] [place] [address] * HEMOGLOBIN A1C (02/17/2022 2:38 PM CDT) [...] diagnosis of diabetes in children. According to [place] Diabetes Association (ADA) guidelines, hemoglobin A1c <7.0% represents optimal control in non- diabetic patients. Different metrics may apply to specific patient populations. Standards of Medical Care in Diabetes(ADA). ESTIMATED AVERAGE GLUCOSE (MG/DL) 97 mg/dL [facility] ESTIMATED AVERAGE GLUCOSE (MMOL/L) 5.4 mmol/L [facility] Comment: Test Performed at: [facility] [address] [address] [place] [address] Gary Hood D.O., MPH Blood 02/17/2022 2:38 PM CDT 02/18/2022 4:29 AM CDT Leah Heller DIRECTOR PRINT CHEMISTRY ORDERABLES F inal Result Performing Organization Address City/[facility]/ZIP Co de Phone Number [facility] [phone] [facility] [address] [place] [address] * POC OCCULT BLOOD UP TO 3 CARDS (04/09/2019 8:34 AM CDT) OCCULT BLOOD 1 CARD POC Negative Negative [facility] [place] OCCULT BLOOD 2 CARD POC Negative Negative [facility] [place] OCCULT BLOOD 3 CARD POC Negative Negative [facility] [place]NAL [place] [facility] [place]OC [id number] [address] [facility] [place] C[place] EXP[place] DATE POC 10/2019 [facility] [place] DEVELOPER [place] NUMBER POC [id number] [facility] [place] DATE POC 01/2022 [facility] [place] Stool STOOL SPECIMEN / Unknown 04/09/2019 8:34 AM CDT us Sonia Gibbs BIRD CAGE ASSEMBLER POINT OF CARE TESTING F inal Result Performing Organization Address City/[facility]/ZIP Co de Phone Number [facility] CL[facility]# [id number] [place] [id number] from Last 3 Months or Most Recently Relevant to Health Maintenance Insurance [employer] OPEN ACCESS Advance Directives For more information, please contact: [phone] * Full Code (Latest Code Status on File) Date Activated Date Inactivated Comments 07/10/2019 11:43 AM 07/10/2019 4:58 PM * Full Code Date Activated Date Inactivated Comments 07/10/2019 10:56 AM 07/10/2019 11:43 AM Care Teams Hvac Installer Relationship Specialty Start Date End Date Maria De Jesus Voss MD [address] [place] [phone] PCP - General Internal Medicine 02/06/24
--- OUTSIDE RECORDS SUMMARY | 2025-02-21 14:48 | XMS_ITS | Clinical Summary ---
Author Organization [facility] Address [address] [facility] [place] [address] Care Team Providers Care Capacity Analyst Name Role Phone Unavailable Primary Care Provider Unavailabl e Source Comments [facility],non-owned Affiliates and Associated Physician Practices is amultiple site organization consisting of ambulatory clinics and hospital sitesin [place], [place], [place] and [place]. This disclosure is being madepursuant to the Care Everywhere program and may not contain all information available regarding this patient. 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 Gender Identity Not on file Sexual Orientation [...] 12:30 PM CDT Height 165.1 cm (5' 5) 03/07/2017 12:30 PM CDT Body Mass Index [...] SCREENING 1973 LIPID TESTING 1973 MAMMOGRAM 1973 HIV SCREENING 1988 HEPATITIS C SCREENING 10/14/1991 DTAP/TDAP/TD VACCINES (1 - Tdap) 1992 HEPATITIS B VACCINE (1 of 3 - 19+ 3-dose series) 1992 PAP SMEAR 1994 SCREENING FOR DIABETES 10/17/2017 5, 02/21/2014, 02/21/2014, Additional history exists PNEUMOCOCCAL VACCINE 50+ (1 of 1 - PCV) 10/19/2023 ZOSTER VACCINE (1 of 2) 10/19/2023 COVID-19 VACCINE (1 - 2023- season) 2024 DEPRESSION SCREENING 08/07/2024 INFLUENZA VACCINE (#1) 2025 HIB VACCINE Aged Out No longer [...] PM CDT Narrative Resulting Agency Comment [facility] [address] [id number] us Amanda Boles MOLD RUNNER-NEURODIAGNOSTIC TECHNICIAN LAB - CHEMISTRY CHARO THAKKAR Final Result [facility] ACCOUNT BILL [address] [place] [address] from Last 3 Months or Most Recently Relevant to Health Maintenance Insurance [facility] Advance Directives * Full Code (Latest Code Status on File) Date Activated Date Inactivated Comments 02/19/2014 11:47 AM 02/21/2014 2:39 PM
== END 2025-02-21 14:46 | disposition home or self-care (01) ==
LOC: ANHIMG 14:46
PROVIDERS: PCP Internal Medicine; Visit Provider Obstetrics & Gynecology
DX: Z12.31 Encounter for screening mammogram for malignant neoplasm of breast (principal)
CPT/HCPCS: 77063; 77067